=== PATIENT | female | born 1935 | race Caucasian/White ===

== ENCOUNTER 2020-08-15 06:16 | Day surgery (SDC) | payer OTHER ==
--- OUTSIDE RECORDS SUMMARY | 2020-08-15 06:24 | XMS REPORT | Continuity of Care Document ---
:1935 Author Organization [facility] t Address [address] [place] [address] Care Team Providers Name Role Phone Kolby Richardson MD Attending Clinician Problems This patient has no known problems. Allergies, Adverse Reactions, Alerts This patient has no known allergies or adverse reactions. Medications This patient has no known medications. Procedures This patient has no known procedures. Encounters Start End Encounter Admission Attending Care Care Encounter Source Date/Time Date/Time Type Type Clinicians Facility Department ID 2020-07-23 2020-07-23 Office TONY Richardson [id number] 15:35:12 16:15:28 Visit Rosendo Magallanes [id number] [place] [id number] [place]ela [id number] nal 092 Building Results This patient has no known results.
--- OUTSIDE RECORDS SUMMARY | 2020-08-15 06:25 | XMS REPORT | Summary of Care ---
:1935 Author Organization [facility] Address [address] [place], [place] [address] Care Team Providers Name Role Phone Brian Martin MD Primary Care Provider Reason for Referral (Routine) Status Reason Specialty Diagnoses / Referred By Referred To Procedures Contact Contact New Request Physical Therapy Diagnoses Neck pain, chronic Upper back pain, chronic Martin, Procedures CONSULT/REFERRAL PHYSICAL THERAPY Sanjana Torres MD [address] [place] [address] [address] Reason for Visit Reason Comments Follow-up Encounter Details Date Type Department Care Team Description 06/03/2020 Office Visit [facility] Pediatric Martin, Neck p ain, chronic (Primary Dx); and Adult Primary Howard Galindo Upper back pain, chronic; Care- [address] Nausea [address] [address] [address], [address] [place] [address] [place], [place] [phone] [address] [phone] Allergies Active Allergy Reactions Severity Noted Date Comments Amlodipine Other - See comments High 07/19/2017 Severe muscle pain Levofloxacin Nausea and/or High 08/05/2017 Vomiting Lisinopril Swelling 05/03/2017 Penicillins Other - See comments 10/08/2014 When re cieives IM Says feels like ic ewater in runni ng all over and fe els like passing ou t Does not recall getting any oth er way. Iqnpyyi-Smq-Gpz Unknown - See 03/03/2018 Muscle pain Reductase Inhibitors comments documented as of this encounter (statuses as of 06/04/2020) Medications Medication Sig Dispensed Refills Start Date End Date Status docusate 100 mg Take 100 mg 0 Ac tive capsule by mouth daily. MAGNESIUM CITRATE Take 1 0 Ac tive ORAL capsule by mouth 2 (two) times daily. aspirin 81 mg Take 1 tablet 30 tablet 5 12/08/2017 A ctive chewable tablet by mouth daily. D-MANNOSE ORAL 1000mg 0 02/22/2018 Acti ve w/cranberry 400mg COQ10, UBIQUINOL, 200 mg. 0 02/22/2018 A ctive ORAL clopidogreL 75 mg Take 1 tablet 90 tablet 3 01/09/2020 Active tabletIndications by mouth : History of daily. stroke Diclofenac Sodium APPLY TO 600 g 0 03/15/2020 A ctive 1 % AFFECTED gelIndications: AREA(S) EVERY Chronic neck 8 (EIGHT) pain, Chronic HOURS pain of both hips NEEDED FOR PAIN (SCALE 4-6). meloxicam 7.5 mg Take 1 tablet 60 tablet 3 06/03/2020 Active tabletIndications by mouth : Neck pain, daily. If not chronic, Upper helping may back pain, increase up chronic to 2 daily. ondansetron Take 1 tablet 270 tablet 3 09/26/2019 Di scontinued (ZOFRAN) 4 mg by mouth 0 (Thera py tabletIndications every 8 co mpleted) : Nausea (eight) hours as needed for Nausea and Vomiting (N/V). documented as of this encounter (statuses as of 06/04/2020) Active Problems Problem Noted Date Slurred speech 11/28/2017 Stroke 11/27/2017 Dizziness 10/07/2017 At risk for seizures 05/10/2017 IVH (intraventricular hemorrhage) 05/03/2017 Acquired obstructive hydrocephalus 05/03/2017 SAH (subarachnoid hemorrhage) 05/03/2017 Essential hypertension 05/03/2017 Vertebral artery dissection documented as of this encounter (statuses as of 06/04/2020) Resolved Problems Problem Noted Date Resolved Date Myocardial infarction type 2 08/12/2019 06/04/2020 Elevated troponin I level 08/11/2019 06/04/2020 UTI symptoms 06/29/2019 06/04/2020 Insect bite, initial encounter 06/20/2019 0 Hx: UTI (urinary tract infection) 06/20/20192019 Medicare annual wellness visit, subsequent 06/20/2019 06/04/2020 Unspecified severe protein-calorie malnutrition 01/31/2018 06/04/2020 Protein-calorie malnutrition, moderate 01/31/2018 0 06/04/2020 Disorientation 05/03/2017 08/15/2017 Nausea & vomiting 05/02/2017 06/04/2020 documented as of this encounter (statuses as of 06/04/2020) Social History Tobacco Use Types Packs/Day Years Used Date Never Smoker Smokeless Tobacco: Never Used Alcohol Use Drinks/Week oz/Week Comments No Sex Assigned at Date Recorded Not on file COVID-19 Exposure Response Date Recorded In the last month, have you been in contact with No / Unsure 06/03/2020 2:17 PM CDT someone who was confirmed or suspected to have Coronavirus / COVID-19? documented as of this encounter Last Filed Vital Signs Vital Sign Reading Time Taken Comments Blood Pressure 167/85 06/03/2020 3:33 PM CDT Pulse 83 06/03/2020 3:31 PM CDT Temperature 36.2 C (97.2 F) 06/03/2020 3:31 PM CDT Respiratory Rate 20 06/03/2020 3:31 PM CDT Oxygen Saturation 95% 06/03/2020 3:31 PM CDT Inhaled Oxygen Concentration - - Weight 61.5 kg (135 lb 8 oz) 06/03/2020 3:31 PM CDT Height 172.7 cm (5' 8") 06/03/2020 3:31 PM CDT Body Mass Index 20.6 06/03/2020 3:31 PM CDT documented in this encounter Patient Instructions Patient InstructionsAraseli Dorsey M - 06/03/2020 3:20 PM CDTYou can read "Plant Paradox" by Dr. Herring. He has a lot of good information on diet and talks aboutlectins. You can also go online to [email or web address] [email or web address] for more information and recipes. 5 drops each of copaiba, frankincense, and orange essential oils in 10ml roller bottle, then add Jojoba oil to fill the bottle. Can use up to every 4 hours on intact skin over the area of pain. documented in this encounter Progress Notes Sanjana Martin MD - 06/03/2020 3:20 PM CDT DOS: 06/03/2020 CC: Follow up of chronic conditions HPI: Renu Garcia is a 84 year old female with history including has a past medical history of Glaucoma, Hydrocephalus (05/2017), Hypertension, Migraines, Stroke, and Vertebral artery dissection. who is being seen today for follow up of chronic conditions. Patient reports nausea resolved with taking salt tablet. Daughter states when she took her off the salt tablet the nausea came back and she started having dizziness with standing, symptoms resolved when she restarted the salt tablet. Patient reports occasional pain down the left arm, pain is worse when she walks with her walker. On exam, she has tight muscles in her neck. She sits with her head leaning forward and reports pain whentrying to lift her head back. Daughter states she's unable to have massage therapy on her neck due to occlusion of vertebral artery, they were told to never allow massage in her neck as could break a clot free. Had significant pain when trying to get glaucoma test. She had to put her head back to put her chin on the machine but could not tolerate the pain. Daughter mentions after hip procedure she refused to work with PT due to pain. Health Maintenance Discuss at future visit. Medications reviewed in [facility], past medical history and social history and allergies reviewed. Review of Systems Gastrointestinal: Negative for nausea. Musculoskeletal: Positive for back pain (upper back ) and neck pain. Neurological: Negative for dizziness. PE: Blood pressure (!) 167/85, pulse 83, temperature 36.2 C (97.2 F), temperature source Temporal Artery, resp. rate 20, height 5' 8" (1.727 m), weight 135 lb 8 oz (61.5 kg), SpO2 95 %. Physical Exam Vitals signs reviewed. Constitutional: General: She is not in acute distress. Appearance: She is well-developed. She is not diaphoretic. HENT: Head: Normocephalic and atraumatic. Right Ear: External ear normal. Left Ear: External ear normal. Nose: Nose normal. Eyes: General: No scleral icterus. Right eye: No discharge. Left eye: No discharge. Comments: Left and right eyelids normal. Neck: Musculoskeletal: Decreased range of motion. Pain with movement present. Musculoskeletal: Comments: She has tight muscles in her neck. Skin: General: Skin is warm and dry. Neurological: Mental Status: She is alert and oriented to person, place, and time. Comments: No tremors. Normal gait. Psychiatric: Behavior: Behavior normal. Comments: Pleasant. Results: No new labs Education & Visit Time: this visit involved counseling and coordination of care that comprised more than 50% of the visit time. I spent at least 25 mintues total time with the patient. Of that time, at least 1 minute was spent on exam, and at least 24 minutes was spent obtaining history and counseling the patient regarding risks and benefits of treatment, treatment options and prevention. A/P: Renu Garcia is a 84 year old female with history including has a past medical history ofGlaucoma, Hydrocephalus (05/2017), Hypertension, Migraines, Stroke, and Vertebral artery dissection.who is being seen today for chronic medical conditions. Neck pain, chronic (primary encounter diagnosis) Upper back pain, chronic Comment: pain not controlled. Could be related to tight muscles and poor posture, will try PT. Will give meloxicam for now (no bleeding, currently taking ibuprofen twice a day) even though on plavix. If any bleeding daughter will stop. Will try to decrease pain so she can work with PT. Spent time discussing this. Plan: START meloxicam 7.5 mg tablet, CONSULT/REFERRAL PHYSICAL THERAPY. Discussed essential oils for pain, information provided on after visit summary. Nausea Comment: resolved with taking salt tablet. Plan: continue adding salt to diet. Return for 2-3 months for follow-up chronic conditions.. Plan of care, desired health behaviors, goals,& medication discussed with patient and educational resources and self management tools provided as appropriate. Patient/family/guardian voices understanding. Patient verbalized understanding & agrees to plan of care. Barriers to care: none Ability to manage care: good Scribe's Attestation Araseli Rodriguez , am scribing for, and in the presence of, Sanjana Martin MD who performed the services described here-in. Araseli Dorsey, June 03, 2020, 3:21 PM Physician's Attestation I, Sanjana Martin MD, personally performed the services described in this documentation , asscribed by, Araseli Dorsey in my presence and it is both accurate and complete. Sanjana Martin MD June 04, 2020, 10:32 AM documented in this encounter Plan of Treatment Date Type Specialty Care Team Description 08/12/2020 Office Visit Internal Medicine Patti Martin MD [address] [place] [address] 15 [phone] Health Maintenance Due Date Last Done Comments DTaP,Tdap,and Td Vaccines (1 1956 - Tdap) Medicare Wellness Visit 2002 Osteoporosis Screening 06/21/2020 Postponed from 2002 (Alternative Joseph delines) INFLUENZA VACCINE (#1) 2020 Depression Screening 11/21/2020 11/21/2019 Zoster Recombinant Vaccine 11/23/2020 Postp oned from 1987 (SHINGRIX) (1 of 2) (Insurance / Financial) PNEUMOCOCCAL VACCINES 65+ Addressed 08/05/2017 Overri dden with the (Declined) intention of not completing the t opic documented as of this encounter Implants Implanted Type Area Display Maker Device Shelf Model / Identifier Expiration Serial / Lot Date Bipolar Head, Hu Uhr Bipolar [id number] #Uh1-48-28 [Uh1-48-28] BIPOLAR Left: Hu 02/02/2022 [id number] / Implanted: Qty: 1 on 11/29/2017 by Reid Tim MD at [facility] head Hip 0 / [id number] Head, [place] V40 Cocr Lfit 28mm/0 #6260-9-128 Femoral Left: Hu 07/20/2022 6260-9-128 / Implanted: Qty: 1 on 11/29/2017 by Reid Tim MD at [facility] Head Hip 0 / [id number] Stem, [place] Size 7 Accolade Ii 127deg #[id number] Femoral Left: Hu 08/10/2022 [id number] / Implanted: Qty: 1 on 11/29/2017 by Reid Tim MD at [facility] Stem Hip 0 / [id number] documented as of this encounter Results Not on filedocumented in this encounter Visit Diagnoses Diagnosis Neck pain, chronic - Primary Cervicalgia Upper back pain, chronic Backache, unspecified Nausea Nausea alone documented in this encounter Insurance Payer Benefit Plan / Subscriber ID Effective Dates Phone Addre ss Type Group MEDICARE MEDICARE PART [id number] 2002-[place] [phone] Medicare A & B t 2 [id number] [place] [id number] [facility] MEDICAID OF [id number] 2012-Presen [phone] [address] Medicaid [place] t 0 [id number] [place] [address] documented as of this encounter Advance Directives Name Relationship Healthcare Agent Communication Relationship Zoya "Ailyn" Abran [facility] Health Care Agent [email or web address] MonkAt[facility] Health [facility] Agent (Mobile) [email or web address]
--- OUTSIDE RECORDS SUMMARY | 2020-08-15 06:25 | XMS REPORT | Summary of Care ---
:1935 Author Organization [facility] Address [address] [place], [place] [id number] Care Team Providers Name Role Phone Biran Martin MD Primary Care Provider Reason for Referral (Routine) Status Reason Specialty Diagnoses / Referred By Referred To Procedures Contact Contact New Request Physical Therapy Diagnoses Neck pain, chronic Upper back pain, chronic Martin, Procedures CONSULT/REFERRAL PHYSICAL THERAPY Sanjana Torres MD [address] [place] [address] [address] Reason for Visit Reason Comments Follow-up Encounter Details Date Type Department Care Team Description 06/03/2020 Office Visit [facility] Pediatric Martin, Neck p ain, chronic (Primary Dx); and Adult Primary Howard Galindo Upper back pain, chronic; Care- [address] Nausea [address] [address] [address], [address] [place] [address] [place] [phone] [address] [phone] Allergies Active Allergy Reactions Severity Noted Date Comments Amlodipine Other - See comments High 07/19/2017 Severe muscle pain Levofloxacin Nausea and/or High 08/05/2017 Vomiting Lisinopril Swelling 05/03/2017 Penicillins Other - See comments 10/08/2014 When re cieives IM Says feels like ic ewater in runni ng all over and fe els like passing ou t Does not recall getting any oth er way. Lzxngau-May-Mai Unknown - See 03/03/2018 Muscle pain Reductase [...] aboutlectins. You can also go online to [email or web address]/ for more information and recipes. 5 drops [...] Discuss at future visit. Medications reviewed in [facility], past medical history and social history and [...] Office Visit Internal Medicine Patti Martin MD [address] [place] [address] 15 [phone] Health Maintenance Due Date Last Done Comments [...] of this encounter Implants Implanted Type Area Third Hand Device Shelf Model / Identifier Expiration Serial / Lot Date Bipolar Head, Hu Uhr Bipolar [id number] #Uh1-48-28 [Uh1-48-28] BIPOLAR Left: Hu 02/02/2022 UH1-48-28 / Implanted: Qty: 1 on 11/29/2017 by Reid Tim MD at [facility] head Hip 0 / [id number] Head, [place] V40 Cocr Lfit 28mm/0 #6260-9-128 Femoral Left: Hu 07/20/2022 6260-9-128 / Implanted: Qty: 1 on 11/29/2017 by Reid Tim MD at [facility] Head Hip 0 / [id number] Stem, [place] Size 7 Accolade Ii 127deg #[id number] Femoral Left: Hu 08/10/2022 [id number] / Implanted: Qty: 1 on 11/29/2017 by Reid Tim MD at [facility] Stem Hip 0 / [id number] documented as of this encounter Results Not on filedocumented in this encounter Visit Diagnoses Diagnosis Neck pain, chronic - Primary Cervicalgia Upper back pain, chronic Backache, unspecified Nausea Nausea alone documented in this encounter Insurance Payer Benefit Plan / Subscriber ID Effective Dates Phone Addre ss Type Group MEDICARE MEDICARE PART [id number] 2002-[place] [phone] [address] Medicare A & B t 2 [id number] [place] [phone] [facility] MEDICAID OF [id number] 2012-Presen [phone] [address] Medicaid [place] t 0 [id number] [place] [address] documented as of this encounter Advance Directives Name Relationship Healthcare Agent Communication Relationship Zoya "Ailyn" Abran [facility] Health Care Agent [email or web address] MonkHugh [facility] Agent (Mobile) [email or web address]
--- OUTSIDE RECORDS SUMMARY | 2020-08-15 06:26 | XMS REPORT | Summary of Care ---
:1935 Author Organization [facility] Address [address] [place] [address] Care Team Providers Name Role Phone Brian Martin MD Primary Care Provider Reason for Visit Reason Comments Refill Request Encounter Details Date Type Department Care Team Description 06/10/2020 Refill [facility] Family Medicine Jabier Martin, Refill Request - Elpidio OROZCO [address] [place] [address] Dr [address] [place] [address] [place] [address] [facility] [address] [place] [address] Allergies Active Allergy Reactions Severity Noted Date Comments Amlodipine Other - See comments High 07/19/2017 Severe muscle pain Levofloxacin Nausea and/or High 08/05/2017 Vomiting Lisinopril Swelling 05/03/2017 Penicillins Other - See comments 10/08/2014 When re cieives IM Says feels like ic ewater in runni ng all over and fe els like passing ou t Does not recall getting any oth er way. Gacakfn-Hga-Ylg Unknown - See 03/03/2018 Muscle pain Reductase Inhibitors comments documented as of this encounter (statuses as of 06/12/2020) Medications Medication Sig Dispensed Refills Start Date End Date Status docusate 100 mg Take 100 mg by 0 Active capsule mouth daily. MAGNESIUM CITRATE Take 1 capsule 0 Active ORAL by mouth 2 (two) times daily. aspirin 81 mg Take 1 tablet 30 tablet 5 12/08/2017 A ctive chewable tablet by mouth daily. D-MANNOSE ORAL 1000mg 0 02/22/2018 Acti ve w/cranberry 400mg COQ10, UBIQUINOL, 200 mg. 0 02/22/2018 A ctive ORAL clopidogreL 75 mg Take 1 tablet 90 tablet 3 01/09/2020 Active tabletIndications by mouth : History of daily. stroke meloxicam 7.5 mg Take 1 tablet 60 tablet 3 06/03/2020 Active tabletIndications by mouth : Neck pain, daily. If not chronic, Upper helping may back pain, increase up to chronic 2 daily. Diclofenac Sodium APPLY TO 600 g 3 06/12/2020 A ctive 1 % AFFECTED gelIndications: AREA(S) EVERY Chronic neck 8 (EIGHT) pain, Chronic HOURS pain of both hips NEEDED FOR PAIN (SCALE 4-6). Diclofenac Sodium APPLY TO 600 g 0 03/15/2020 D iscontinued 1 % AFFECTED 0 (Reorder) gelIndications: AREA(S) EVERY Chronic neck 8 (EIGHT) pain, Chronic HOURS pain of both hips NEEDED FOR PAIN (SCALE 4-6). documented as of this encounter (statuses as of 06/12/2020) Active Problems Problem Noted Date Slurred speech 11/28/2017 Stroke 11/27/2017 Dizziness 10/07/2017 At risk for seizures 05/10/2017 IVH (intraventricular hemorrhage) 05/03/2017 Acquired obstructive hydrocephalus 05/03/2017 SAH (subarachnoid hemorrhage) 05/03/2017 Essential hypertension 05/03/2017 Vertebral artery dissection documented as of this encounter (statuses as of 06/12/2020) Resolved Problems Problem Noted Date Resolved Date [...] as of this encounter (statuses as of 06/12/2020) Social History Tobacco Use Types Packs/Day Years [...] of this encounter Last Filed Vital Signs Not on filedocumented in this encounter Plan of Treatment Date Type Specialty Care Team Description 06/17/2020 Ancillary Visit Physical Therapy Vanesa Miller , PT [address] [place] [address] 08/12/2020 Office Visit Internal Medicine Patti Martin MD [address] [place] [address] Health Maintenance Due Date Last Done Comments [...] of this encounter Implants Implanted Type Area Water Plant Pump Operator Supervisor Device Shelf Model / Identifier Expiration Serial / Lot Date Bipolar Head, Anita Uhr Bipolar [id number] #Uh1-48-28 [Uh1-48-28] BIPOLAR Left: Hu 02/02/2022 UH1-48-28 / Implanted: Qty: 1 on 11/29/2017 by Reid Tim MD at [facility] head Hip 0 / [id number] Head, [place] V40 Cocr Lfit 28mm/0 #[id number] Femoral Left: Hu 07/20/2022 6260-9-128 / Implanted: Qty: 1 on 11/29/2017 by Reid Tim MD at [facility] Head Hip 0 / [id number] Stem, Hu Size 7 Accolade Ii 127deg #[id number] Femoral Left: Anita 08/10/2022 [id number] / Implanted: Qty: 1 on 11/29/2017 by Reid Tim MD at [facility] Stem Hip 0 / [id number] documented as of this encounter Results Not on filedocumented in this encounter Visit Diagnoses Diagnosis Chronic neck pain Cervicalgia Chronic pain of both hips documented in this encounter Insurance Payer Benefit Plan / Subscriber ID Effective Dates Phone Addre ss Type Group MEDICARE MEDICARE PART [id number] 2002-[place] [phone] [address] Medicare A & B t 2 [id number] [place] [id number] [facility] MEDICAID OF [id number] 2012-[place] [phone] [address] Medicaid [place] t 0 [id number] [place] [address] documented as of this encounter Advance Directives Name Relationship Healthcare Agent Communication Relationship Zoya "Lois Osullivan [facility] Health Care Agent [email or web address] [email or web address] Garcia [facility] Agent (Mobile) [email or web address]
--- OUTSIDE RECORDS SUMMARY | 2020-08-15 06:26 | XMS REPORT | Summary of Care ---
:1935 Author Organization [facility] Address [address] [id number] Care Team Providers Name Role Phone Brian Martin MD Primary Care Provider Reason for Visit Reason Comments New Evaluation (Routine) Status Reason Specialty Diagnoses / Referred By Referred To Procedures Contact Contact Authorized Physical Therapy Diagnoses Neck pain, chronic Upper back pain, chronic Martin, Procedures CONSULT/REFERRAL PHYSICAL THERAPY TX PHYSICAL THERAPY EVALUATION LOW COMPLEX 20 MINS TX PHYSICAL THERAPY EVALUATION MOD COMPLEX 30 MINS TX PHYSICAL THERAPY EVALUATION HIGH COMPLEX 45 MINS TX THERAPEUTIC EXERCISES Sanjana Torres MD [place] NEUROMUSC REE DUCAT,1+ AREAS, EA 15 MIN TX MANUAL THER TECH,1+REGIONS,EA 15 MIN TX THERAPEUT ACTVITY DIRECT PT CONTACT EACH 15 MIN TX SELF-CARE/HOME MGMT TRAINING EACH 15 MINUTES [address] [place] [address] Encounter Details Date Type Department Care Team Description 06/17/2020 Ancillary Visit [facility] Ryley Salinas MD [address] [facility] [place] [address] Chronic neck pain (Primary Dx); Physical Therapy- Vanesa Miller, PT [address] [place] [address] Chronic upper back pain; Hagerman Limited joint range of motio n; Professional Office Muscle w eakness (generalized); Building Impaired functional mobility and activity tolerance [address] [place] [phone] Allergies Active Allergy Reactions Severity Noted Date Comments Amlodipine Other - See comments High 07/19/2017 Severe muscle pain Levofloxacin Nausea and/or High 08/05/2017 Vomiting Lisinopril Swelling 05/03/2017 Penicillins Other - See comments 10/08/2014 When re cirao IM Says feels like ic ewater in runni ng all over and fe els like passing ou t Does not recall getting any oth er way. [id number] Unknown - See 03/03/2018 Muscle pain Reductase Inhibitors comments documented as of this encounter (statuses as of 06/18/2020) Medications Medication Sig Dispensed Refills Start Date End Date Status docusate 100 mg Take 100 mg by 0 Active capsule mouth daily. MAGNESIUM CITRATE ORAL Take 1 capsule by 0 Active mouth 2 (two) times daily. aspirin 81 mg chewable Take 1 tablet by 30 tablet 5 12/08/2017 Active tablet mouth daily. D-MANNOSE ORAL 1000mg w/cranberry 0 02/22/2018 Active 400mg COQ10, UBIQUINOL, ORAL 200 mg. 0 02/22/2018 Active clopidogreL 75 mg Take 1 tablet by 90 tablet 3 01/09/2020 Active tabletIndications: mouth daily. History of stroke meloxicam 7.5 mg Take 1 tablet by 60 tablet 3 06/03/2020 Active tabletIndications: mouth daily. If Neck pain, chronic, not helping may Upper back pain, increase up to 2 chronic daily. Diclofenac Sodium 1 % APPLY TO AFFECTED 600 g 3 06/12/2020 Active gelIndications: AREA(S) EVERY 8 Chronic neck pain, (EIGHT) HOURS Chronic pain of both NEEDED FOR PAIN hips (SCALE 4-6). documented as of this encounter (statuses as of 06/18/2020) Active Problems Problem Noted Date Slurred speech 11/28/2017 Stroke 11/27/2017 Dizziness 10/07/2017 At risk for seizures 05/10/2017 IVH (intraventricular hemorrhage) 05/03/2017 Acquired obstructive hydrocephalus 05/03/2017 SAH (subarachnoid hemorrhage) 05/03/2017 Essential hypertension 05/03/2017 Vertebral artery dissection documented as of this encounter (statuses as of 06/18/2020) Resolved Problems Problem Noted Date Resolved Date [...] as of this encounter (statuses as of 06/18/2020) Social History Tobacco Use Types Packs/Day Years Used Date Never Smoker Smokeless Tobacco: Never Used Alcohol Use Drinks/Week oz/Week Comments No Sex Assigned at Date Recorded Not on file COVID-19 Exposure Response Date Recorded In the last month, have you been in contact with No / Unsure 06/17/2020 12:18 PM CDT someone who was confirmed or suspected to have Coronavirus / COVID-19? documented as of this encounter Last Filed Vital Signs Not on filedocumented in this encounter Progress Notes Vanesa Miller, PT - 06/17/2020 2:00 PM CDT Initial Evaluation Date: June 17, 2020 Visit Number: Visit count could not be calculated. Make sure you are using a visit which is associated with an episode. Diagnosis: 1. Chronic neck pain 2. Chronic upper back pain 3. Limited joint range of motion 4. Muscle weakness (generalized) 5. Impaired functional mobility and activity tolerance History of Condition: Patient agreed for her daughter to be present during PT evaluation. Per patient daughter patient woke up with neck pain and upper back pain last April 2020. Patient complaint of not able to move neck to all direction due to pain and occasionally she have some tingling/numbness sensation on both hands in certain position.Patient daughter also stated that she was not able to have eye exam due to increase pain when bending backward. PRECAUTION: Copied from doctor's order comment:neck pain and upper back pain. NO massage in her neckdue to occlusion, but can do excercises for the neck. ok for massage therapy below the neck. please do exercises for upper back and neck. Knowledge of condition: Fair Quality of life: Good Prior physical therapy: No Patient Goals: Goals Patient wants to be able to get her head up to be able to get her eyes check. (pt-stated) Past Medical History: Diagnosis Date Glaucoma Hydrocephalus 05/2017 Hypertension Migraines since 16 years old. Stroke Vertebral artery dissection Past Surgical History: Procedure Laterality Date BREAST LUMPECTOMY was benign cyst EXTRACAPSULAR CATARACT EXTRACTION WITH INTRAOCULAR LENS IMPLANT HIP HEMIARTHROPLASTY Left 11/29/2017 Surgeon: Reid Tim MD; Location: [facility] OR Location VAGINAL RECONSTRUCTION Objective: Outpatient PT Evaluation Row Name 06/17/20 1400 Precautions Precautions 1: General Assessments: Cervical Spine Assessments C-Spine Assessments: Observations;Range of motion;L scapula strength;R scapula strength Cervical Spine Observations Posture: Forward head;Rounded shoulders Cervical Spine Tenderness: Right;Left Cervical Spine Range of Motion Cervical Spine Flexion: (22) Cervical Spine Extension: (8) Cervical Spine Sidebend Right: 36 Cervical Spine Sidebend Left: 22 Cervical Spine Rotation Right: (10) Cervical Spine Rotation Left: (13) Right Shoulder Scapula Strength R Retraction/Lower Trapezius: 3+/5 R Protraction/Middle Trapezius: 3+/5 R Elevation/Rhomboids: 3+/5 R Depression/Serratus Anterior: 3+/5 Left Shoulder Scapula Strength L Retraction/Lower Trapezius: 3+/5 L Protraction/Middle Trapezius: 3+/5 L Elevation/Rhomboids: 3+/5 L Depression/Serratus Anterior: 3+/5 Outcome Tools: Neck and Pain Disability Scores: Total Percentage: 60 % Total Manual Score: (not recorded) Treatment: See Outpatient PT Treatment Flowsheet Assessment: Patient will benefit from skilled PT services to decrease pain, increase range of motion, strength, and improve functional mobility. Rehab potential: guarded Facilitators to goal achievement: Good family support Barriers to goal achievement: Medical complexity Short Term Goals: To be met in 4 visits: 1. Decrease pain to at least neck and upper back to 3/10. 2. Increase neck ROM to 50% 3. Educate Pt. on a HEP (Home Exercise Program), and proper posture/body mechanics. Chcf Goals: To be met in 8 visits: 1. Patient will be able to turn head and upper back to safely without pain 2. Patient will demonstrate increased cervical range of motion by 90% or better to be able to reach maximum functional mobility 3. Patient will report decreased pain to 1/10 or better 4. Patient will be independent with home exercise program. 5. Patient able to understand and demonstrate safety and precaution independently in activities of daily living, gait and functional mobility Plan of Care 1. Modalities as needed to control pain 2. Therapeutic Exercises & Activities to increase cervical ROM, strength, flexibility, and improve functional performance. 3. Manual Therapy to upper back only 4. Safety and Precaution Education Frequency: 2x/week Duration: 8 visits I have discussed the risks and benefits of the above plan with Renu Garcia. She is aware of the diagnosis and potential to improve. She participated in the setting of the goals and understands the importance of complying with the treatment plan, including home instruction. She agreed to th e above frequency and duration of rehab services. Patient- Family Teaching: Patient provided with preferred teaching of verbal information on POC. Shows readiness to learn. Verbal instruction teaching provided. Individual is able to read and verbalizes understanding of teaching provided. Vanesa Miller,PT [place] License: [id number] Required Components in Determining Evaluation Level History: No personal factors or comorbidities: No (60220) 1-2 personal factors and/or comorbidities: Yes (10790) 3 or more personal factors and/ or comorbidities: No (66509) Examination of Body System(s) Addressing 1-2 elements: Yes (49974) Addressing a total of 3 or more elements: No (09967) Addressing a total of 4 or more elements: No (58893) Clinical Presentation Stable: Yes (69974) Evolving: No (35293) Unstable: No (18702) Clinical Decision Making (Complexity) Low: Yes (05347) Moderate: No (94743) High: No (39637) documented in this encounter Plan of Treatment Date Type Specialty Care Team Description 06/24/2020 Ancillary Visit Physical Therapy Vanesa Miller , PT [address] [place] [address] 06/26/2020 Ancillary Visit Physical Therapy Katherine Dodd, WOOL SHEARING SUPERVISOR [address] [place] [address] 07/03/2020 Ancillary Visit Physical Therapy Katherine Dodd, WOOL SHEARING SUPERVISOR [address] [place] [address] 07/05/2020 Ancillary Visit Physical Therapy Katherine Dodd, WOOL SHEARING SUPERVISOR [address] [place] [address] 08/12/2020 Office Visit Internal Medicine Patti Martin MD [address] [place] [address] [phone] Health Maintenance Due Date Last Done Comments [...] t opic documented as of this encounter Goals Goal Patient Goal Associated Recent Patient-Stated? Author Type Problems Progress Patient wants General Yes Miller, to be able to Vanesa Lopez PT get her head up to be able to get her eyes check. documented as of this encounter Implants Implanted Type Area Audit Mgr Device Shelf Model / Identifier Expiration Serial / Lot Date Bipolar Head, [place] Uhr Bipolar [id number] [[id number]] BIPOLAR Left: [place] 02/02/2022 [id number] / Implanted: Qty: 1 on 11/29/2017 by Reid Tim MD at [facility] head Hip 0 / [id number] Head, [place] V40 Cocr Lfit 28mm/0 #[id number] Femoral Left: Hu 07/20/2022 6260-9-128 / Implanted: Qty: 1 on 11/29/2017 by Reid Tim MD at [facility] Head Hip 0 / [id number] Stem, [place] Size 7 Accolade Ii 127deg #[id number] Femoral Left: Hu 08/10/2022 [id number] / Implanted: Qty: 1 on 11/29/2017 by Reid Tim MD at [facility] Stem Hip 0 / [id number] documented as of this encounter Results Not on filedocumented in this encounter Visit Diagnoses Diagnosis Chronic neck pain - Primary Cervicalgia Chronic upper back pain Backache, unspecified Limited joint range of motion Stiffness of joint, not elsewhere classi fied, unspecified site Muscle weakness (generalized) Impaired functional mobility and activit y tolerance documented in this encounter Insurance Payer Benefit Plan / Subscriber ID Effective Dates Phone Addre ss Type Group MEDICARE MEDICARE PART [id number] 2002-[place] [phone] [address] Medicare A & B t 2 [id number] [place] [id number] [facility] MEDICAID OF [id number] 2012-[place] [phone] [address] Medicaid [place] t 0 [id number] [place] [address] documented as of this encounter Advance Directives Name Relationship Healthcare Agent Communication Relationship Zoya "Lois Osullivan [facility] Health Care Agent [email or web address] [email or web address] Haines [address] [place] [address] [phone] Agent (Mobile) [email or web address]
--- OUTSIDE RECORDS SUMMARY | 2020-08-15 06:27 | XMS REPORT | Summary of Care ---
:1935 Author Organization [facility] Address [address] [place] [address] Care Team Providers Name Role Phone Brian Martin MD Primary Care Provider Reason for Visit Reason Comments Follow-up (Routine) Status Reason Specialty Diagnoses / Referred By Referred To Procedures Contact Contact Authorized Physical Therapy Diagnoses Neck pain, chronic Upper back pain, chronic Matrin, Procedures CONSULT/REFERRAL PHYSICAL THERAPY GA PHYSICAL THERAPY EVALUATION LOW COMPLEX 20 MINS GA PHYSICAL THERAPY EVALUATION MOD COMPLEX 30 MINS GA PHYSICAL THERAPY EVALUATION HIGH COMPLEX 45 MINS GA THERAPEUTIC EXERCISES Sanjana Torres MD [place] NEUROMUSC REE DUCAT,1+ AREAS, EA 15 MIN GA MANUAL THER TECH,1+REGIONS,EA 15 MIN GA THERAPEUT ACTVITY DIRECT PT CONTACT EACH 15 MIN GA SELF-CARE/HOME MGMT TRAINING EACH 15 MINUTES [address] [place] [address] Encounter Details Date Type Department Care Team Description 06/26/2020 Ancillary Visit [facility] Ryley Salinas MD [address] [place] [address] Chronic neck pain (Primary Dx); Physical Therapy- Katherine Dodd, RIG OPERATOR [address] [place] [address] Chronic upper back pain; Arthur Limited joint range of motio n; Professional Office Muscle w eakness (generalized); Building Impaired functional mobility and activity tolerance [address] [place] [phone] Allergies Active Allergy Reactions Severity Noted Date Comments Amlodipine Other - See comments High 07/19/2017 Severe muscle pain Levofloxacin Nausea and/or High 08/05/2017 Vomiting Lisinopril Swelling 05/03/2017 Penicillins Other - See comments 10/08/2014 When re cirao IM Says feels like ic ewater in runni ng all over and fe els like passing ou t Does not recall getting any oth er way. [id number] Unknown - See 03/03/2018 Muscle pain Reductase Inhibitors comments documented as of this encounter (statuses as of 06/26/2020) Medications Medication Sig Dispensed Refills Start Date [...] as of this encounter (statuses as of 06/26/2020) Active Problems Problem Noted Date Slurred speech 11/28/2017 Stroke 11/27/2017 Dizziness 10/07/2017 At risk for seizures 05/10/2017 IVH (intraventricular hemorrhage) 05/03/2017 Acquired obstructive hydrocephalus 05/03/2017 SAH (subarachnoid hemorrhage) 05/03/2017 Essential hypertension 05/03/2017 Vertebral artery dissection documented as of this encounter (statuses as of 06/26/2020) Resolved Problems Problem Noted Date Resolved Date [...] as of this encounter (statuses as of 06/26/2020) Social History Tobacco Use Types Packs/Day Years [...] on filedocumented in this encounter Progress Notes Katherine Dodd, RIG OPERATOR - 06/26/2020 2:20 PM CDT Physical Therapy Treatment Date: June 26, 2020 Subjective: Pt has no current c/o neck pain. She states it is sore and she thinks it started hurtingafter she got a new pillow that is very thick and she was used to sleeping with a thin one. Pt reports that she fell yesterday and now her lower rib on left side hurts some. She did not quantify pain. 1. Chronic neck pain 2. Chronic upper back pain 3. Limited joint range of motion 4. Muscle weakness (generalized) 5. Impaired functional mobility and activity tolerance Objective: Outpatient PT Treatment Row Name 06/26/20 1400 General Visit Number 3 Chart Reviewed Yes Family/Caregiver Present No General Comments 3 of 8 visits Precautions Precautions 1: SEE EVAL: No massage on neck Pain Assessment Pain Score 0 - No pain Pain Location Neck upperback Pain Descriptors Sore Therapeutic Exercise Therapeutic Exercise Activity 1 Upper trapz, SCM, Levator scapulae stretch: 2 X 30"ea Therapeutic Exercise Activity 2 Shoulder shrug, sh bkwd rotation, sh horizontal abduction,Sh blades protraction/retraction, trunk rotation x 10 ea Therapeutic Exercise Acitivity 3 Sitting in W/C: Thoracic extension with ball, trunk forward bend x 10ea Therapeutic Exercise Activity 4 Sitting in WC: Iglesia: flexion and abduction 1'ea HEP: Continue HEP as instructed. Pt reports compliance. Assessment: Pt exhibits weak core with independent sitting on zoie. She required verbal, visual and tactile cues for stretches and exercises. Pt tolerated treatment fair. Plan: Continue with POC 2 x 8 to decrease pain, increase cervical ROM and improve functional mobility. Will add/advance exercises as able. Katherine Dodd PTA [place] Lic#[id number] Supervised by: Lidya Pickard PT [facility] [phone] (phone) documented in this encounter Plan of Treatment Date Type Specialty Care Team Description 07/03/2020 Ancillary Visit Physical Therapy Ryley Salinas MD [address] [place] [address] Katherine Dodd [address] [address] 07/05/2020 Ancillary Visit Physical Therapy Ryley Salinas MD [address] [place] [address] Katherine Dodd [address] [address] 08/12/2020 Office Visit Internal Medicine Patti Martin MD [address] [facility] [address] [place], [place] [address] [phone] Health Maintenance Due Date Last Done Comments DTaP,Tdap,and Td Vaccines (1 1956 - Tdap) Medicare Wellness Visit 2002 Osteoporosis Screening 2002 INFLUENZA VACCINE (#1) 2020 Depression Screening 11/21/2020 [...] General Yes Miller, to be able to [facility], PT get her head up to be able to get her eyes check. documented as of this encounter Implants Implanted Type Area Audit Control Clerk Device Shelf Model / Identifier Expiration Serial / Lot Date Bipolar Head, [place] Uhr Bipolar [id number] #[id number] [[id number]] BIPOLAR Left: [place] 02/02/2022 [id number] / Implanted: Qty: 1 on 11/29/2017 by Reid Tim MD at [facility] head Hip 0 / [id number] Head, [place] V40 Cocr Lfit 28mm/0 #[id number] Femoral Left: Hu 07/20/2022 6260-9-128 / Implanted: Qty: 1 on 11/29/2017 by Reid Tim MD at [facility] Head Hip 0 / [id number] Stem, [place] Size 7 Accolade Ii 127deg #[id number] Femoral Left: [place] 08/10/2022 [id number] / Implanted: Qty: 1 on 11/29/2017 by Reid Tim MD at [facility] Stem Hip 0 / [id number] documented as of this encounter Results Not [...] Addre ss Type Group MEDICARE MEDICARE PART [id number] 2002-[place] [phone] [address] Medicare A & B t 2 [id number] [place] [address] [facility] MEDICAID OF [id number] 2012-[place] [phone] [address] Medicaid [place] t 0 [id number] [place] [address] documented as of this encounter Advance Directives Name Relationship Healthcare Agent Communication Relationship Zoya "Lois Osullivan [facility] Care Agent [email or web address] [email or web address] Haines [facility] 97 [phone] Agent (Mobile) [email or web address]
--- OUTSIDE RECORDS SUMMARY | 2020-08-15 06:27 | XMS REPORT | Summary of Care ---
:1935 Author Organization [facility] Address [address] [place] [address] Care Team Providers Name Role Phone Brian Martin MD Primary Care Provider Reason for Visit Reason Comments Follow-up (Routine) Status Reason Specialty Diagnoses / Referred By Referred To Procedures Contact Contact Authorized Physical Therapy Diagnoses Neck pain, chronic Upper back pain, chronic Martin, Procedures CONSULT/REFERRAL PHYSICAL THERAPY DC PHYSICAL THERAPY EVALUATION LOW COMPLEX 20 MINS DC PHYSICAL THERAPY EVALUATION MOD COMPLEX 30 MINS DC PHYSICAL THERAPY EVALUATION HIGH COMPLEX 45 MINS DC THERAPEUTIC EXERCISES Sanjana Torres MD DC NEUROMUSC REE DUCAT,1+ AREAS, EA 15 MIN DC MANUAL THER TECH,1+REGIONS,EA 15 MIN DC THERAPEUT ACTVITY DIRECT PT CONTACT EACH 15 MIN DC SELF-CARE/HOME MGMT TRAINING EACH 15 MINUTES [address] [place] [address] Encounter Details Date Type Department Care Team Description 07/03/2020 Ancillary Visit [facility] Ryley Salinas MD [address] [place] [facility] [place] [address] Chronic neck pain (Primary Dx); Physical Therapy- Katherine Dodd, BOOK STORE ASSOCIATE [address] [place] [address] Chronic upper back pain; [place] Limited joint range of motio n; Professional Office Muscle w eakness (generalized); Building Impaired functional mobility and activity tolerance [address] [place] [phone] Allergies Active Allergy Reactions Severity Noted Date Comments Amlodipine Other - See comments High 07/19/2017 Severe muscle pain Levofloxacin Nausea and/or High 08/05/2017 Vomiting Lisinopril Swelling 05/03/2017 Penicillins Other - See comments 10/08/2014 When re cirao IM Says feels like ic ewater in runni ng all over and fe els like passing ou t Does not recall getting any oth er way. [id number] Unknown - See 03/03/2018 Muscle pain Reductase Inhibitors comments documented as of this encounter (statuses as of 07/03/2020) Medications Medication Sig Dispensed Refills Start Date [...] as of this encounter (statuses as of 07/03/2020) Active Problems Problem Noted Date Slurred speech 11/28/2017 Stroke 11/27/2017 Dizziness 10/07/2017 At risk for seizures 05/10/2017 IVH (intraventricular hemorrhage) 05/03/2017 Acquired obstructive hydrocephalus 05/03/2017 SAH (subarachnoid hemorrhage) 05/03/2017 Essential hypertension 05/03/2017 Vertebral artery dissection documented as of this encounter (statuses as of 07/03/2020) Resolved Problems Problem Noted Date Resolved Date [...] as of this encounter (statuses as of 07/03/2020) Social History Tobacco Use Types Packs/Day Years [...] in this encounter Progress Notes Katherine Dodd, BOOK STORE ASSOCIATE - 07/03/2020 2:20 PM CDT Physical Therapy Treatment Date: July 03, 2020 Subjective: Pt has no current c/o pain. She sates she stopped sleeping with a pillow because she thinks that is what made her neck hurt. 1. Chronic neck pain 2. Chronic upper back pain 3. Limited joint range of motion 4. Muscle weakness (generalized) 5. Impaired functional mobility and activity tolerance Objective: Outpatient PT Treatment Row Name 07/03/20 1400 General Visit Number 4 Chart Reviewed Yes Family/Caregiver Present No General Comments 4 of 8 visits Precautions Precautions 1: SEE EVAL: No massage on neck Pain Assessment Pain Score 0 - No pain Pain Location Neck upperback Therapeutic Exercise Enter Number of Therapeutic Exercise Activities: 5 Therapeutic Exercise Activity 1 Upper trapz, SCM, Levator scapulae stretch: 2 X 30"ea Therapeutic Exercise Activity 2 Shoulder shrug, sh bkwd rotation, sh horizontal abduction,Sh blades protraction/retraction, trunk rotation x 10 ea Therapeutic Exercise Acitivity 3 Sitting in W/C: Thoracic extension with ball, trunk forward bend x 10ea Therapeutic Exercise Activity 4 Sitting in WC: Iglesia: flexion and abduction 1'ea Therapeutic Exercise Activity 5 Sitting in WC: L2 TB 6 and 12 oclock x10ea, rows x10 HEP: Continue HEP as instructed. Pt reports compliance. Assessment: Pt was able to sit on ozie for a longer period of time today. She continues to require verbal, visual and tactile cues for stretches and exercises. Pt tolerated treatment fair. Plan: Continue with POC 2 x 8 to decrease pain, increase cervical ROM and improve functional mobility. Will add/advance exercises as able. Katherine Dodd PTA [place] Lic#[id number] Supervised by: Lidya Pickard PT [facility] Services Dept. [phone] (phone) documented in this encounter Plan of Treatment Date Type Specialty Care Team Description 07/05/2020 Ancillary Visit Physical Therapy Ryley Salinas MD [address] [place] [phone] Katherine Dodd BOOK STORE ASSOCIATE [address] [place] [address] 08/12/2020 Office Visit Internal Medicine Patti Martin MD [address] [facility] [address] [place], [place] [address] [phone] Health Maintenance Due Date Last Done Comments [...] Type Problems Progress Patient wants General Yes Paul, to be able to [facility], PT get her head up to be able to get her eyes check. documented as of this encounter Implants Implanted Type Area Elastic Attacher Overlock Device Shelf Model / Identifier Expiration Serial / Lot Date Bipolar Head, Hu Uhr Bipolar [id number] #Uh1-48-28 [Uh1-48-28] BIPOLAR Left: Graham 02/02/2022 [id number] / Implanted: Qty: 1 on 11/29/2017 by Reid Tim MD at [facility] head Hip 0 / [id number] Head, Graham V40 Cocr Lfit 28mm/0 #[id number] Femoral Left: Hu 07/20/2022 [id number] / Implanted: Qty: 1 on 11/29/2017 by Reid Tim MD at [facility] Head Hip 0 / [id number] Stem, Hu Size 7 Accolade Ii 127deg #[id number] Femoral Left: Graham 08/10/2022 [id number] / Implanted: Qty: 1 on 11/29/2017 by Reid Tim MD at [facility] Stem Hip 0 / [id number] documented as of this encounter Results Not [...] Addre ss Type Group MEDICARE MEDICARE PART [id number] 2002-[place] [phone] [address] Medicare A & B t 2 [id number] [place] [address] [facility] MEDICAID OF [id number] 2012-[place] [phone] [address] Medicaid [place] t 0 [id number] [place] [address] documented as of this encounter Advance Directives Name Relationship Healthcare Agent Communication Relationship Zoya Osullivan (Susie) [facility] Care Agent [email or web address] Grzegorz Haines [place] [address] [phone] Agent (Mobile) [email or web address]
--- OUTSIDE RECORDS SUMMARY | 2020-08-15 06:27 | XMS REPORT | Summary of Care ---
:1935 Author Organization [facility] Address [address] [place] [address] Care Team Providers Name Role Phone Brian Martin MD Primary Care Provider Reason for Visit Reason Comments Follow-up (Routine) Status Reason Specialty Diagnoses / Referred By Referred To Procedures Contact Contact Authorized Physical Therapy Diagnoses Neck pain, chronic Upper back pain, chronic Martin, Procedures CONSULT/REFERRAL PHYSICAL THERAPY PA PHYSICAL THERAPY EVALUATION LOW COMPLEX 20 MINS PA PHYSICAL THERAPY EVALUATION MOD COMPLEX 30 MINS PA PHYSICAL THERAPY EVALUATION HIGH COMPLEX 45 MINS PA THERAPEUTIC EXERCISES Sanjana Torres MD PA NEUROMUSC REE DUCAT,1+ AREAS, EA 15 MIN PA MANUAL THER TECH,1+REGIONS,EA 15 MIN PA THERAPEUT ACTVITY DIRECT PT CONTACT EACH 15 MIN PA SELF-CARE/HOME MGMT TRAINING EACH 15 MINUTES [address] [facility] [address] [place] [address] Encounter Details Date Type Department Care Team Description 07/05/2020 Ancillary Visit [facility] Ryley Salinas MD [address] [facility] [place] [address] Chronic neck pain (Primary Dx); Physical Therapy- Katherine Dodd, KRAFT MILL OPERATOR [address] [place] [address] Chronic upper back pain; [place] Limited joint range of motio n; Professional Office Muscle w eakness (generalized); Building Impaired functional mobility and activity tolerance [address] [place] [phone] Allergies Active Allergy Reactions Severity Noted Date Comments Amlodipine Other - See comments High 07/19/2017 Severe muscle pain Levofloxacin Nausea and/or High 08/05/2017 Vomiting Lisinopril Swelling 05/03/2017 Penicillins Other - See comments 10/08/2014 When re cirao IM Says feels like ic ewater in runni ng all over and fe els like passing ou t Does not recall getting any oth er way. [id number] Unknown - See 03/03/2018 Muscle pain Reductase Inhibitors comments documented as of this encounter (statuses as of 07/05/2020) Medications Medication Sig Dispensed Refills Start Date [...] as of this encounter (statuses as of 07/05/2020) Active Problems Problem Noted Date Slurred speech 11/28/2017 Stroke 11/27/2017 Dizziness 10/07/2017 At risk for seizures 05/10/2017 IVH (intraventricular hemorrhage) 05/03/2017 Acquired obstructive hydrocephalus 05/03/2017 SAH (subarachnoid hemorrhage) 05/03/2017 Essential hypertension 05/03/2017 Vertebral artery dissection documented as of this encounter (statuses as of 07/05/2020) Resolved Problems Problem Noted Date Resolved Date [...] as of this encounter (statuses as of 07/05/2020) Social History Tobacco Use Types Packs/Day Years [...] in this encounter Progress Notes Katherine Dodd, KRAFT MILL OPERATOR - 07/05/2020 2:20 PM CDT Physical Therapy Treatment Date: July 05, 2020 Subjective: Pt has no current c/o pain. She states she has occasional tingling down left arm. 1. Chronic neck pain 2. Chronic upper back pain 3. Limited joint range of motion 4. Muscle weakness (generalized) 5. Impaired functional mobility and activity tolerance Objective: Outpatient PT Treatment Row Name 07/05/20 1400 General Visit Number 5 Chart Reviewed Yes Family/Caregiver Present No General Comments 5 of 8 visits Precautions Precautions 1: SEE EVAL: No massage on neck Pain Assessment Pain Score 0 - No pain Pain Location Neck upperback Therapeutic Exercise Therapeutic Exercise Activity 1 Upper trapz, SCM, Levator scapulae stretch: 2 X 30"ea Therapeutic Exercise Activity 2 Shoulder shrug, sh bkwd rotation, sh horizontal abduction,Sh blades protraction/retraction, trunk rotation x 12 ea Therapeutic Exercise Acitivity 3 Sitting in W/C: Thoracic extension with ball 1', trunk forward bend x 10 Therapeutic Exercise Activity 4 Sitting in WC: Iglesia: flexion and abduction 1'ea Therapeutic Exercise Activity 5 Sitting: L2 TB 6 and 12 oclock x10ea, rows x10 Therapeutic Activity Enter Number of Therapeutic Activities: 2 Therapeutic Activity 1 Bracial nerve glides x5 Therapeutic Activity 2 Restorator for UE 1' fwd/ 1' bkwd HEP: Continue HEP as instructed. Pt reports compliance. Assessment: Pt exhibits slightly improved core strength with sitting EOB. She continues to require verbal, visual and tactile cues for stretches and exercises. Pt tolerated treatment fair. Plan: Continue with POC 2 x 8 to decrease pain, increase cervical ROM and improve functional mobility. Will add/advance exercises as able. Katherine Dodd PTA [place] Lic#[id number] Supervised by: Lidya Pickard PT [facility] Rehabilitation Services Dept. [phone] (phone) documented in this encounter Plan of Treatment Date Type Specialty Care Team Description 07/09/2020 Ancillary Visit Physical Therapy Lidya Anguiano, PT [address] [place] [address] 08/12/2020 Office Visit Internal Medicine Patti Martin MD [address] [place] [address] [phone] Health Maintenance Due Date Last Done Comments [...] General Yes Paul, to be able to Vanesa Lopez PT get her head up to be able to get her eyes check. documented as of this encounter Implants Implanted Type Area Community Leader Device Shelf Model / Identifier Expiration Serial / Lot Date Bipolar Head, [place] Uhr Bipolar [id number] #Uh1-48-28 [Uh1-48-28] BIPOLAR Left: [place] 02/02/2022 UH1-48-28 / Implanted: Qty: 1 on 11/29/2017 by Reid Tim MD at [facility] head Hip 0 / [id number] Head, Hu V40 Cocr Lfit 28mm/0 #[id number] Femoral Left: Hu 07/20/2022 [id number] / Implanted: Qty: 1 on 11/29/2017 by Reid Tim MD at [facility] Head Hip 0 / [id number] Stem, Hu Size 7 Accolade Ii 127deg #[id number] Femoral Left: [place] 08/10/2022 [id number] / Implanted: Qty: 1 on 11/29/2017 by Reid Tim MD at [facility] Stem Hip 0 / [id number] documented as of this encounter Results Not [...] Addre ss Type Group MEDICARE MEDICARE PART [id number] 2002-[place] [phone] [address] Medicare A & B t 2 [id number] [place] [address] [facility] MEDICAID OF [id number] 2012-[place] [phone] [address] Medicaid [place] t 0 [id number] [place] [address] documented as of this encounter Advance Directives Name Relationship Healthcare Agent Communication Relationship Zoya "Lois Osullivan Child Health Care Agent [email or web address] [email or web address] [place] [address] [phone] Agent (Mobile) [email or web address]
--- OUTSIDE RECORDS SUMMARY | 2020-08-15 06:27 | XMS REPORT | Summary of Care ---
:1935 Author Organization [facility] Address [address] [place] [id number] Care Team Providers Name Role Phone Brian Martin MD Primary Care Provider Reason for Visit Reason Comments Follow-up (Routine) Status Reason Specialty Diagnoses / Referred By Referred To Procedures Contact Contact Authorized Physical Therapy Diagnoses Neck pain, chronic Upper back pain, chronic Martin, Procedures CONSULT/REFERRAL PHYSICAL THERAPY [place] PHYSICAL THERAPY EVALUATION LOW COMPLEX 20 MINS [place] PHYSICAL THERAPY EVALUATION MOD COMPLEX 30 MINS WV PHYSICAL THERAPY EVALUATION HIGH COMPLEX 45 MINS [place] THERAPEUTIC EXERCISES Sanjana Torres MD [place] NEUROMUSC REE DUCAT,1+ AREAS, EA 15 MIN [place] MANUAL THER TECH,1+REGIONS,EA 15 MIN [place] THERAPEUT ACTVITY DIRECT PT CONTACT EACH 15 MIN [place] SELF-CARE/HOME MGMT TRAINING EACH 15 MINUTES [address] [facility] [place] [address] Encounter Details Date Type Department Care Team Description 06/24/2020 Ancillary Visit [facility] Ryley Salinas MD [address] [place] [address] Chronic neck pain (Primary Dx); Physical Therapy- Vanesa Miller, PT [address] [place] [address] Chronic upper back pain; [place] Limited joint range of motio n; Professional Office Muscle w eakness (generalized); Building Impaired functional mobility and activity tolerance [address] [place] [address] [address] [place] [phone] Allergies Active Allergy Reactions Severity Noted Date Comments Amlodipine Other - See comments High 07/19/2017 Severe muscle pain Levofloxacin Nausea and/or High 08/05/2017 Vomiting Lisinopril Swelling 05/03/2017 Penicillins Other - See comments 10/08/2014 When re cirao IM Says feels like ic ewater in runni ng all over and fe els like passing ou t Does not recall getting any oth er way. [id number] Unknown - See 03/03/2018 Muscle pain Reductase Inhibitors comments documented as of this encounter (statuses as of 06/25/2020) Medications Medication Sig Dispensed Refills Start Date [...] as of this encounter (statuses as of 06/25/2020) Active Problems Problem Noted Date Slurred speech 11/28/2017 Stroke 11/27/2017 Dizziness 10/07/2017 At risk for seizures 05/10/2017 IVH (intraventricular hemorrhage) 05/03/2017 Acquired obstructive hydrocephalus 05/03/2017 SAH (subarachnoid hemorrhage) 05/03/2017 Essential hypertension 05/03/2017 Vertebral artery dissection documented as of this encounter (statuses as of 06/25/2020) Resolved Problems Problem Noted Date Resolved Date [...] as of this encounter (statuses as of 06/25/2020) Social History Tobacco Use Types Packs/Day Years [...] encounter Progress Notes Vanesa Miller, PT - 06/24/2020 2:20 PM CDT Date: June 24, 2020 Subjective: Patient complaint of L side neck/upperback area 1. Chronic neck pain 2. Chronic upper back pain 3. Limited joint range of motion 4. Muscle weakness (generalized) 5. Impaired functional mobility and activity tolerance Objective: Outpatient PT Treatment Row Name 06/24/20 1400 General Visit Number 2 General Comments 2 of 8 visits Precautions Choose Number of Precautions: 1 Precautions 1: SEE EVAL: No massage on neck Pain Assessment Pain Score per patient not very much Post-Treatment Pain Score 0 - No pain Pain Location Neck upperback Pain Orientation Posterior Pain Descriptors Therapeutic Exercise Enter Number of Therapeutic Exercise Activities: 4 Therapeutic Exercise Activity 1 Upper trapz, SCM, Levator scapulae stretch: 5" X 10 Therapeutic Exercise Activity 2 Sitting in W/C:Shoulder shrug, sh rotation, sh horizontal abduction,Sh blades protraction/retraction, trunk rotation x 10 ea Therapeutic Exercise Acitivity 3 Sitting in W/C: Thoracic extension with ball, trunk forward bend x 10ea Therapeutic Exercise Activity 4 Iglesia: extension/flexion Assessment: Patient tolerated PT management therapeutic exercises with constant verbal and tactile cues.Denies pain after PT. Plan: To continue PT as planned emphasis on Modalities as needed to control pain,Therapeutic Exercises & Activities to increase cervical ROM, strength, flexibility, and improve functional performance, Manual Therapy to upper back only,Safety and Precaution Education for 2x/week x 8 visits Vanesa Miller,PT [place] License: [id number] documented in this encounter Plan of Treatment Date Type Specialty Care Team Description 06/26/2020 Ancillary Visit Physical Therapy Ryley Salinas MD [address] [place] [phone] Katherine Dodd, [address] [address] 07/03/2020 Ancillary Visit Physical Therapy Ryley Salinas MD [address] [place] [phone] Katherine Dodd, [address] [address] 07/05/2020 Ancillary Visit Physical Therapy Ryley Salinas MD [address] [place] [address] Katherine Dodd, [address] [address] 08/12/2020 Office Visit Internal Medicine Patti Martin MD [address] [address] [phone] Health Maintenance Due Date Last Done Comments [...] of this encounter Implants Implanted Type Area Environmental Law Professor Device Shelf Model / Identifier Expiration Serial / Lot Date Bipolar Head, Hu Uhr Bipolar [id number] #Uh1-48-28 [Uh1-48-28] BIPOLAR Left: [place] 02/02/2022 UH1-48-28 / Implanted: Qty: 1 on 11/29/2017 by Reid Tim MD at [facility] head Hip 0 / [id number] Head, [place] V40 Cocr Lfit 28mm/0 #[id number] Femoral Left: Frederic 07/20/2022 [id number] / Implanted: Qty: 1 on 11/29/2017 by Reid Tim MD at [facility] Head Hip 0 / [id number] Stem, Hu Size 7 Accolade Ii 127deg #[id number] Femoral Left: Hu 08/10/2022 [id number] / Implanted: Qty: 1 on 11/29/2017 by Reid Tim MD at [facility] Stem Hip 0 / [id number] documented as of this encounter Results Not [...] Addre ss Type Group MEDICARE MEDICARE PART [id number] 2002-[place] [phone] [address] [facility] Medicare A & B t 2 [id number] [place] [address] [facility] MEDICAID OF [id number] 2012-[place] [phone] [address] Medicaid [place] t 0 [id number] [place] [address] documented as of this encounter Advance Directives Name Relationship Healthcare Agent Communication Relationship Zoya "Lois Osullivan [facility] Care Agent [email or web address] [email or web address] Haines [facility] 97 [phone] Agent (Mobile) [email or web address]
--- OUTSIDE RECORDS SUMMARY | 2020-08-15 06:28 | XMS REPORT | Summary of Care ---
:1935 Author Organization [facility] - [facility] Address [address] [id number] Care Team Providers Name Role Phone Brian Martin MD Primary Care Provider Reason for Visit Reason Comments Follow-up (Routine) Status Reason Specialty Diagnoses / Referred By Referred To Procedures Contact Contact Authorized Physical Therapy Diagnoses Neck pain, chronic Upper back pain, chronic Martin, Procedures CONSULT/REFERRAL PHYSICAL THERAPY IN PHYSICAL THERAPY EVALUATION LOW COMPLEX 20 MINS IN PHYSICAL THERAPY EVALUATION MOD COMPLEX 30 MINS IN PHYSICAL THERAPY EVALUATION HIGH COMPLEX 45 MINS IN THERAPEUTIC EXERCISES Sanjana Torres MD IN NEUROMUSC REE DUCAT,1+ AREAS, EA 15 MIN IN MANUAL THER TECH,1+REGIONS,EA 15 MIN IN THERAPEUT ACTVITY DIRECT PT CONTACT EACH 15 MIN IN SELF-CARE/HOME MGMT TRAINING EACH [address] [place] [address] Dr Man[address] [place] [address] Encounter Details Date Type Department Care Team Description 07/09/2020 Ancillary Visit [facility] Farideh Martin MD [address] [place] [address] Dr Manley [address] [place] [address] Chronic neck pain (Primary Dx); Physical Therapy- Lidya Anguiano, PT [address] [place] [address] Chronic upper back pain; [place] Limited joint range of motio n; Professional Office Muscle w eakness (generalized); Building Impaired functional mobility and activity tolerance [address] [place] [address] Dr. Elise [address] [place] [phone] Allergies Active Allergy Reactions Severity Noted Date Comments Amlodipine Other - See comments High 07/19/2017 Severe muscle pain Levofloxacin Nausea and/or High 08/05/2017 Vomiting Lisinopril Swelling 05/03/2017 Penicillins Other - See comments 10/08/2014 When re ciaro IM Says feels like ic ewater in runni ng all over and fe els like passing ou t Does not recall getting any oth er way. [id number]-Eru Unknown - See 03/03/2018 Muscle pain Reductase Inhibitors comments documented as of this encounter (statuses as of 07/09/2020) Medications Medication Sig Dispensed Refills Start Date [...] as of this encounter (statuses as of 07/09/2020) Active Problems Problem Noted Date Slurred speech 11/28/2017 Stroke 11/27/2017 Dizziness 10/07/2017 At risk for seizures 05/10/2017 IVH (intraventricular hemorrhage) 05/03/2017 Acquired obstructive hydrocephalus 05/03/2017 SAH (subarachnoid hemorrhage) 05/03/2017 Essential hypertension 05/03/2017 Vertebral artery dissection documented as of this encounter (statuses as of 07/09/2020) Resolved Problems Problem Noted Date Resolved Date [...] as of this encounter (statuses as of 07/09/2020) Social History Tobacco Use Types Packs/Day Years Used Date Never Smoker Smokeless Tobacco: Never Used Alcohol Use Drinks/Week oz/Week Comments No Sex Assigned at Date Recorded Not on file COVID-19 Exposure Response Date Recorded In the last month, have you been in contact with No / Unsure 07/09/2020 3:06 PM CDT someone who was confirmed or suspected to have Coronavirus / COVID-19? documented as of this encounter Last Filed Vital Signs Not on filedocumented in this encounter Progress Notes Lidya Anguiano, PT - 07/09/2020 3:00 PM CDT Physical Therapy Treatment Date: July 09, 2020 Subjective: " I guess I am alright. I am feeling better." 1. Chronic neck pain 2. Chronic upper back pain 3. Limited joint range of motion 4. Muscle weakness (generalized) 5. Impaired functional mobility and activity tolerance Objective: Outpatient PT Treatment Row Name 07/09/20 1600 General Visit Number 6 Chart Reviewed Yes Family/Caregiver Present No General Comments 6 of 8 visits Precautions Choose Number of [...] Therapeutic Exercise Activity 4 Sitting in WC: Igleisa: flexion and abduction 1'ea Therapeutic Exercise Activity 5 Sitting: L2 TB 6 and 12 oclock x10ea, rows x10 Therapeutic Activity Therapeutic Activity 1 Bracial nerve glides x5 (not today) Therapeutic Activity 2 Restorator for UE 1' fwd/ 1' bkwd Assessment: Pt with good ROM, patient required rest break between activities on mat and activities in gym. Patient with good tolerance as long as she takes rest break. Patient progressing well. Plan: Patient to continue with POC focusing on strengthening, decreasing pain, and increasing overall mobility. Lidya Pickard, PT [place] PT License [id number] [facility] Rehabilitation Services Department (phone) (fax) documented in this encounter Plan of Treatment Date Type Specialty Care Team Description 07/11/2020 Ancillary Visit Physical Therapy Kaye Martin MD [address] [place] [address] [phone] Katherine Dodd, [address] [address] 07/16/2020 Ancillary Visit Physical Therapy Kaye Martin MD [address] [place] [address] [phone] Katherine Dodd, [address] [address] 07/18/2020 Ancillary Visit Physical Therapy Kaye Martin MD [address] [place] [address] [address] [phone] Katherine Dodd, [address] [address] 08/12/2020 Office Visit Internal Medicine Patti Martin MD [address] [place] [address] 77 15 [phone] Health Maintenance Due Date Last Done Comments [...] of this encounter Implants Implanted Type Area Machine Room Operator Device Shelf Model / Identifier Expiration Serial / Lot Date Bipolar Head, Hu Uhr Bipolar [id number] #[id number] [Uh1-48-28] BIPOLAR Left: [place] 02/02/2022 UH1-48-28 / Implanted: Qty: 1 on 11/29/2017 by Reid Tim MD at [facility] head Hip 0 / [id number] Head, Hu V40 Cocr Lfit 28mm/0 #[id number] Femoral Left: Hu 07/20/2022 [id number] / Implanted: Qty: 1 on 11/29/2017 by Reid Tim MD at [facility] Head Hip 0 / [id number] Stem, [place] Size 7 Accolade Ii 127deg #[id number] Femoral Left: Hu 08/10/2022 [id number] / Implanted: Qty: 1 on 11/29/2017 by Reid Tim MD at [facility] Stem Hip 0 / [id number] documented as of this encounter Results Not [...] Addre ss Type Group MEDICARE MEDICARE PART [id number] 2002-[place] [phone] Medicare A & B t 2 [id number] [place] [address] [facility] MEDICAID OF [id number] 2012-Presen [phone] [address] Medicaid [place] t 0 [id number] [place] [address] documented as of this encounter Advance Directives Name Relationship Healthcare Agent Communication Relationship Zoya "Lois Osullivan [facility] Health Care Agent [email or web address] Haines [facility] Agent (Mobile) [email or web address]
--- OUTSIDE RECORDS SUMMARY | 2020-08-15 06:29 | XMS REPORT | Summary of Care ---
:1935 Author Organization [facility] - [facility] Address [address] [id number] Care Team Providers Name Role Phone Brian Martin MD Primary Care Provider Reason for Visit Reason Comments Follow-up (Routine) Status Reason Specialty Diagnoses / Referred By Referred To Procedures Contact Contact Authorized Physical Therapy Diagnoses Neck pain, chronic Upper back pain, chronic Martin, Procedures CONSULT/REFERRAL PHYSICAL THERAPY [place] PHYSICAL THERAPY EVALUATION LOW COMPLEX 20 MINS MS PHYSICAL THERAPY EVALUATION MOD COMPLEX 30 MINS MS PHYSICAL THERAPY EVALUATION HIGH COMPLEX 45 MINS MS THERAPEUTIC EXERCISES Sanjana Torres MD MS NEUROMUSC REE DUCAT,1+ AREAS, EA 15 MIN MS MANUAL THER TECH,1+REGIONS,EA 15 MIN [place] THERAPEUT ACTVITY DIRECT PT CONTACT EACH 15 MIN MS SELF-CARE/HOME MGMT TRAINING EACH [address] [place] [address] Dr Man[address] [place] [address] Encounter Details Date Type Department Care Team Description 07/11/2020 Ancillary Visit [facility] Farideh Martin MD [address] [place] [address] Dr Manley [address] [place] [address] Chronic neck pain (Primary Dx); Physical Therapy- Vanesa Miller, PT [address] [place] [address] Chronic upper back pain; [place] Limited joint range of motio n; Professional Office Muscle w eakness (generalized); Building Impaired functional mobility and activity tolerance [address] Elise [address] [place] [phone] Allergies Active Allergy Reactions Severity Noted Date Comments Amlodipine Other - See comments High 07/19/2017 Severe muscle pain Levofloxacin Nausea and/or High 08/05/2017 Vomiting Lisinopril Swelling 05/03/2017 Penicillins Other - See comments 10/08/2014 When re cirao IM Says feels like ic ewater in runni ng all over and fe els like passing ou t Does not recall getting any oth er way. [id number]-Zlg-Tef Unknown - See 03/03/2018 Muscle pain Reductase Inhibitors comments documented as of this encounter (statuses as of 07/11/2020) Medications Medication Sig Dispensed Refills Start Date [...] as of this encounter (statuses as of 07/11/2020) Active Problems Problem Noted Date Slurred speech 11/28/2017 Stroke 11/27/2017 Dizziness 10/07/2017 At risk for seizures 05/10/2017 IVH (intraventricular hemorrhage) 05/03/2017 Acquired obstructive hydrocephalus 05/03/2017 SAH (subarachnoid hemorrhage) 05/03/2017 Essential hypertension 05/03/2017 Vertebral artery dissection documented as of this encounter (statuses as of 07/11/2020) Resolved Problems Problem Noted Date Resolved Date [...] as of this encounter (statuses as of 07/11/2020) Social History Tobacco Use Types Packs/Day Years [...] encounter Progress Notes Vanesa Miller, PT - 07/11/2020 2:40 PM CDT Physical Therapy Treatment Date: July 11, 2020 Subjective: Denies pain , mostly her neck pain is in the morning when she wakes up. 1. Chronic neck pain 2. Chronic upper back pain 3. Limited joint range of motion 4. Muscle weakness (generalized) 5. Impaired functional mobility and activity tolerance Objective: Outpatient PT Treatment Row Name 07/11/20 1400 General Visit Number 7 Chart Reviewed Yes Family/Caregiver Present No General Comments 7 of 8 visits Precautions Choose Number of [...] rows x10 Therapeutic Activity Therapeutic Activity 1 Brachial nerve glides x5 Therapeutic Activity 2 Restorator for UE 1' fwd/ 1' bkwd Assessment: Patient required persistent verbal cues during therapeutic exercises for proper body mechanics. Denied pain after PT. Plan: Patient to continue with POC focusing on strengthening, decreasing pain, and increasing overall mobility. Vanesa Miller,PT [place] License: [id number] documented in this encounter Plan of Treatment Date Type Specialty Care Team Description 07/16/2020 Ancillary Visit Physical Therapy Kaye Martin MD [address] [place] [address] [address] [phone] Katherine Dodd, [address] [address] 07/18/2020 Ancillary Visit Physical Therapy Kaye Martin MD [address] [place] [address] [address] Katherine Dodd, [address] [address] 08/12/2020 Office Visit Internal Medicine Patti Martin MD [address] [place] [address] [phone] Health Maintenance Due Date Last Done Comments [...] General Yes Miller, to be able to Mercjulia Lopez PT get her head up to be able to get her eyes check. documented as of this encounter Implants Implanted Type Area Cardiac Cath Lab Technologist Device Shelf Model / Identifier Expiration Serial / Lot Date Bipolar Head, Hu Uhr Bipolar [id number] #Uh1-48-28 [Uh1-48-28] BIPOLAR Left: Hu 02/02/2022 UH1-48-28 / Implanted: Qty: 1 on 11/29/2017 by Reid Tim MD at [facility] head Hip 0 / [id number] Head, Hu V40 Cocr Lfit 28mm/0 #[id number] Femoral Left: [place] 07/20/2022 6260-9-128 / Implanted: Qty: 1 on 11/29/2017 by Reid Tim MD at [facility] Head Hip 0 / [id number] Stem, Hu Size 7 Accolade Ii 127deg #[id number] Femoral Left: [place] 08/10/2022 [id number] / Implanted: Qty: 1 on 11/29/2017 by Reid Tim MD at [facility] Stem Hip 0 / [id number] documented as of this encounter Results Not [...] Addre ss Type Group MEDICARE MEDICARE PART [id number] 2002-Presap [phone] [address] Medicare A & B t 2 [id number] [place] [address] [facility] MEDICAID OF [id number] 2012-Presap [phone] [address] Medicaid [place] t 0 [id number] [place] [address] documented as of this encounter Advance Directives Name Relationship Healthcare Agent Communication Relationship Zoya "Ailyn" Abran [facility] [place] Care Agent [email or web address] Grzegorz Haines [facility] Agent (Mobile) [email or web address]
--- OUTSIDE RECORDS SUMMARY | 2020-08-15 06:29 | XMS REPORT | Summary of Care ---
:1935 Author Organization [facility] - [facility] Address [address] [phone] Care Team Providers Name Role Phone Brian Martin MD Primary Care Provider Reason for Visit Reason Comments Follow-up (Routine) Status Reason Specialty Diagnoses / Referred By Referred To Procedures Contact Contact Authorized Physical Therapy Diagnoses Neck pain, chronic Upper back pain, chronic Martin, Procedures CONSULT/REFERRAL PHYSICAL THERAPY [place] PHYSICAL THERAPY EVALUATION LOW COMPLEX 20 MINS [place] PHYSICAL THERAPY EVALUATION MOD COMPLEX 30 MINS [place] PHYSICAL THERAPY EVALUATION HIGH COMPLEX 45 MINS [place] THERAPEUTIC EXERCISES Sanjana Torres MD [place] NEUROMUSC REE DUCAT,1+ AREAS, EA 15 MIN [place] MANUAL THER TECH,1+REGIONS,EA 15 MIN [place] THERAPEUT ACTVITY DIRECT PT CONTACT EACH 15 MIN [place] SELF-CARE/HOME MGMT TRAINING EACH [address] [place] [address] Dr Man[address] [place] [address] Encounter Details Date Type Department Care Team Description 07/16/2020 Ancillary Visit [facility] Farideh Martin MD [address] [place] [address] Dr Manley [address] [place] [address] Chronic neck pain (Primary Dx); Physical Therapy- Katherine Dodd, BENZENE OPERATOR [address] [place] [address] Chronic upper back pain; [place] Limited joint range of motio n; Professional Office Muscle w eakness (generalized); Building Impaired functional mobility and activity tolerance [address] [place] [address] Dr. Elise [address] [place] [phone] Allergies Active Allergy Reactions Severity Noted Date Comments Amlodipine Other - See comments High 07/19/2017 Severe muscle pain Levofloxacin Nausea and/or High 08/05/2017 Vomiting Lisinopril Swelling 05/03/2017 Penicillins Other - See comments 10/08/2014 When re cirao IM Says feels like ic ewater in runni ng all over and fe els like passing ou t Does not recall getting any oth er way. [id number]-Bmw Unknown - See 03/03/2018 Muscle pain Reductase Inhibitors comments documented as of this encounter (statuses as of 07/17/2020) Medications Medication Sig Dispensed Refills Start Date [...] as of this encounter (statuses as of 07/17/2020) Active Problems Problem Noted Date Slurred speech 11/28/2017 Stroke 11/27/2017 Dizziness 10/07/2017 At risk for seizures 05/10/2017 IVH (intraventricular hemorrhage) 05/03/2017 Acquired obstructive hydrocephalus 05/03/2017 SAH (subarachnoid hemorrhage) 05/03/2017 Essential hypertension 05/03/2017 Vertebral artery dissection documented as of this encounter (statuses as of 07/17/2020) Resolved Problems Problem Noted Date Resolved Date [...] as of this encounter (statuses as of 07/17/2020) Social History Tobacco Use Types Packs/Day Years Used Date Never Smoker Smokeless Tobacco: Never Used Alcohol Use Drinks/Week oz/Week Comments No Sex Assigned at Date Recorded Not on file COVID-19 Exposure Response Date Recorded In the last month, have you been in contact with No / Unsure 07/16/2020 2:19 PM CDT someone who was confirmed or suspected to have Coronavirus / COVID-19? documented as of this encounter Last Filed Vital Signs Not on filedocumented in this encounter Progress Notes Katherine Dodd, BENZENE OPERATOR - 07/16/2020 2:20 PM CDT Physical Therapy Treatment Date: July 17, 2020 Subjective: Pt reports her neck feels pretty good but she doesn't feel very good today. She had no specific complaints. 1. Chronic neck pain 2. Chronic upper back pain 3. Limited joint range of motion 4. Muscle weakness (generalized) 5. Impaired functional mobility and activity tolerance Objective: Outpatient PT Treatment Row Name 07/16/20 1400 General Visit Number 8 Chart Reviewed Yes Family/Caregiver Present No General Comments 8 Precautions Precautions 1: SEE EVAL: No massage on neck Pain Assessment Pain Score 0 - No pain Pain Location Neck upperback Therapeutic Exercise Therapeutic Exercise Activity 1 Upper trapz, SCM, Levator scapulae stretch: 2 X 30"ea Therapeutic Exercise Activity 2 Shoulder shrug, sh bkwd rotation, sh horizontal abduction,Sh blades protraction/retraction x15ea; trunk rotation x 10 ea Therapeutic Exercise Acitivity 3 Not today - Sitting in W/C: Thoracic extension with ball 1', trunk forward bend x 10 Therapeutic Exercise Activity 4 Sitting in WC: [place]lesia: flexion and abduction 1'ea Therapeutic Exercise Activity 5 Sitting: L2 TB 6 and 12 oclock x10ea, rows x10 Therapeutic Activity Therapeutic Activity 2 UBE fwd/bkwd L1 2'/2' HEP: Continue HEP as instructed. Pt reports compliance. Assessment: Pt with decreased core strength with sitting EOB today. She continues to require verbal,visual and tactile cues for stretches and exercises. Pt tolerated treatment fair. Plan: Continue with POC 2 x 8 to decrease pain, increase cervical ROM and improve functional mobility. Will add/advance exercises as able. Katherine Dodd PTA [place] Lic#[id number] Supervised by: Lidya Pickard PT [facility] Rehabilitation Services Dept. [phone] (phone) documented in this encounter Plan of Treatment Date Type Specialty Care Team Description 07/18/2020 Ancillary Visit Physical Therapy Kaye Martin MD [address] [place] [address] [phone] Katherine Dodd BENZENE OPERATOR [address] [place] [address] 08/12/2020 Office Visit Internal Medicine Patti Martin MD [address] [place] [address] Health Maintenance Due Date Last [...] of this encounter Implants Implanted Type Area Specialty Development Consultant Device Shelf Model / Identifier Expiration Serial / Lot Date Bipolar Head, Hu Uhr Bipolar [id number] #Uh1-48-28 [Uh1-48-28] BIPOLAR Left: Hu 02/02/2022 UH1-48-28 / Implanted: Qty: 1 on 11/29/2017 by Reid Tim MD at [facility] head Hip 0 / [id number] Head, Hu V40 Cocr Lfit 28mm/0 #[id number] Femoral Left: [place] 07/20/2022 6260-9-128 / Implanted: Qty: 1 on 11/29/2017 by Reid Tim MD at [facility] Head Hip 0 / [id number] Stem, Hu Size 7 Accolade Ii 127deg #[id number] Femoral Left: [place] 08/10/2022 [id number] / Implanted: Qty: 1 on 11/29/2017 by Reid Tim MD at [facility] Stem Hip 0 / [id number] documented as of this encounter Results Not [...] Addre ss Type Group MEDICARE MEDICARE PART [id number] 2002-[place] [phone] [address] Medicare A & B t 2 [id number] [place] [address] [facility] MEDICAID OF [id number] 2012-[place] [phone] [address] Medicaid [place] t 0 [id number] [place] [address] documented as of this encounter Advance Directives Name Relationship Healthcare Agent Communication Relationship Zoya Osullivan (Susie) [facility] Care Agent [email or web address] Ty H[place] [address] [phone] Agent (Mobile) [email or web address]
--- OUTSIDE RECORDS SUMMARY | 2020-08-15 06:30 | XMS REPORT | Summary of Care ---
:1935 Author Organization [facility] Address [address] [place] [address] Care Team Providers Name Role Phone Brian Martin MD Primary Care Provider Reason for Referral MRI/CAT Scan (STAT) Status Reason Specialty Diagnoses / Referred By Referred To Procedures Contact Contact New Request Diagnostic Diagnoses Confusion Acute nonintractable headache, unspecified headache type Anna, K Radiology Procedures CT HEAD WO CONTRAST Blanca, PAC [address] [place] [address] Radiology Services (JOSIAH) Status Reason Specialty Diagnoses / Referred By Referred To Procedures Contact Contact New Request Diagnostic Diagnoses Confusion Acute nonintractable headache, unspecified headache type Anna, K Radiology Procedures XR CHEST 1 VW Blanca, PAC [address] [facility] [address] [place] [address] Reason for Visit Reason Comments Headache Auth/Cert Status Reason Specialty Diagnoses / Referred By Referred To Procedures Contact Contact Emergency Medicine Ad[facility] Em ergency Dept [address] [place] [address] Fax: Encounter Details Date Type Department Care Team Description 07/17/2020 Emergency ADC-Emergency Anna, K Blanca, Confusion (Primary Dx); Department PAC Acute nonintractable headache, unspecifi ed headache type; [address] [place] [address] Hypertension, unspecified type [address] [place] [address] [place] [phone] Allergies Active Allergy Reactions Severity Noted Date Comments Amlodipine Other - See comments High 07/19/2017 Severe muscle pain Levofloxacin Nausea and/or High 08/05/2017 Vomiting Lisinopril Swelling 05/03/2017 Penicillins Other - See comments 10/08/2014 When re sofia IM Says feels like ic ewater in runni ng all over and fe els like passing ou t Does not recall getting any oth er way. Kolkdhl-Ahc-Vfl Unknown - See 03/03/2018 Muscle pain Reductase Inhibitors comments documented as of this encounter (statuses as of 07/17/2020) Medications Medication Sig Dispensed Refills Start Date End Date Status docusate 100 mg capsule Take 100 mg by 0 Active mouth daily. MAGNESIUM CITRATE ORAL Take 1 capsule 0 Active by mouth 2 (two) times daily. aspirin 81 mg chewable Take 1 tablet 30 tablet 5 12/08/2017 Active tablet by mouth daily. D-MANNOSE ORAL 1000mg 0 02/22/2018 Acti ve w/cranberry 400mg COQ10, UBIQUINOL, ORAL 200 mg. 0 02/22/2018 Active clopidogreL 75 mg Take 1 tablet 90 tablet 3 01/09/2020 Active tabletIndications: History by mouth of stroke daily. meloxicam 7.5 mg Take 1 tablet 60 tablet 3 06/03/2020 Active tabletIndications: Neck by mouth pain, chronic, Upper back daily. If not pain, chronic helping may increase up to 2 daily. Diclofenac Sodium 1 % APPLY TO 600 g 3 06/12/2020 Active gelIndications: Chronic AFFECTED neck pain, Chronic pain of AREA(S) EVERY both hips 8 (EIGHT) HOURS NEEDED FOR PAIN (SCALE 4-6). hydroCHLOROthiazide 25 mg Take 2 tablets 30 tablet 0 0 Active tabletIndications: by mouth every Hypertension, unspecified morning. type documented as of this encounter (statuses as [...] been in contact with No / Unsure 07/17/2020 10:28 AM CDT someone who was confirmed or suspected to have Coronavirus / COVID-19? documented as of this encounter Last Filed Vital Signs Vital Sign Reading Time Taken Comments Blood Pressure 174/76 07/17/2020 1:30 PM CDT Pulse 70 07/17/2020 1:30 PM CDT Temperature 36.9 C (98.4 F) 07/17/2020 10:32 AM CDT Respiratory Rate 17 07/17/2020 1:30 PM CDT Oxygen Saturation 98% 07/17/2020 1:30 PM CDT Inhaled Oxygen Concentration - - Weight 61.2 kg (135 lb) 07/17/2020 10:52 AM CDT Height - - Body Mass Index 20.53 06/03/2020 3:31 PM CDT documented in this encounter Discharge Instructions Levi Vázquez PAC - 07/17/2020Follow up with PCP this week Keep BP log at home, twice daily AttachmentsThe following attachments cannot be sent through Care Everywhere.High Blood Pressure, Controlling (Luxembourger)documented in this encounter ED Notes Dulce Dixon RN - 07/17/2020 10:29 AM CDTPt c/o headache that started this morning when she woke up. Denies weakness/dizziness. No acute neuro symptoms noted. 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 Denies CP/blurred vision. documented in this encounter Miscellaneous Notes ED Nurse Note - Bambi Zimmer RN - 07/17/2020 3:10 PM CDTPt given printed and verbal discharge instructions regarding confusion, encouraged hydration. 0 Prescriptions provided Pt verbalized understanding of instructions, pt awake alert oriented, resp reg unlabored, skin w/d, color appropriate for race, moves all ext well,pt encouraged to follow up with PCP. Advised to seek medical attention for new/prolonged/worsening of symptoms, Symptoms improved No adverse reaction to meds given in ER noted upon discharge PIV d'cd, dressing to site, catheter in tact. Awake, alert oriented, resp reg unlabored, skin w/d, pt leaving via personal wheelchair, in no apparent distress. D Nurse Note - Bambi Zimmer RN - 07/17/2020 2:06 PM CDTDaughter at bedside; declining Esidrix at this time. 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 documented in this encounter Plan of Treatment Date Type Specialty Care Team Description 07/18/2020 Ancillary Visit Physical Therapy Kaye Martin MD [address] [place] [address] [place] [address] Katherine Dodd, [address] [address] 08/12/2020 Office Visit Internal Medicine Patti Martin MD [address] [address] [phone] Name Type Priority Associated Diagnoses Date/Ti me URINE CULTURE LAB STAT Confusion 07/17/2020 12:25 PM Acute nonintractable CDT headache, unspecified headache type BLOOD CULTURE SCREEN LAB STAT Confusion 020 11:21 AM CDT BLOOD CULTURE SCREEN LAB STAT Confusion 020 11:06 AM CDT Name Type Priority Associated Diagnoses Order S chedule URINE CULTURE LAB Routine Confusion ONCE for 1 Occurrences Acute nonintractable headach e, starting 07/17/2020 until unspecified headache type Health Maintenance Due Date Last Done Comments [...] of this encounter Implants Implanted Type Area Construction Carpenter Device Shelf Model / Identifier Expiration Serial / Lot Date Bipolar Head, Hu Uhr Bipolar [id number] #[id number] [[id number]] BIPOLAR Left: Hu 02/02/2022 [id number] / Implanted: Qty: 1 on 11/29/2017 by Reid Tim MD at [facility] head Hip 0 / [id number] Head, Hu V40 Cocr Lfit 28mm/0 #[id number] Femoral Left: Hu 07/20/2022 [id number] / Implanted: Qty: 1 on 11/29/2017 by Reid Tim MD at [facility] Head Hip 0 / [id number] Stem, Hu Size 7 Accolade Ii 127deg #[id number] Femoral Left: [place] 08/10/2022 [id number] / Implanted: Qty: 1 on 11/29/2017 by Reid Tim MD at [facility] Stem Hip 0 / [id number] documented as of this encounter Procedures Procedure Name Priority Date/Time Associated Diagnosis Comme nts URINALYSIS STAT 07/17/2020 12:25 Confusion Results for this PM CDT Acute nonintractable procedu re are in headache, unspecified the re sults headache type section. XR CHEST 1 VW JOSIAH 07/17/2020 11:45 Confusion Results for this AM CDT Acute nonintractable procedu re are in headache, unspecified the re sults headache type section. CT HEAD WO CONTRAST STAT 07/17/2020 11:43 Confusion Results for this AM CDT Acute nonintractable procedu re are in headache, unspecified the re sults headache type section. BLOOD CULTURE STAT 07/17/2020 11:21 Confusion SCREEN AM CDT LACTIC ACID WHOLE STAT 07/17/2020 11:20 Confusion Results for this BLOOD AM CDT Acute nonintractable procedu re are in headache, unspecified the re sults headache type section. BLOOD CULTURE STAT 07/17/2020 11:06 Confusion SCREEN AM CDT COVID-19 (ID NOW STAT 07/17/2020 10:57 Confusion Results for this RAPID TESTING) AM CDT Acute nonintractable proce dure are in headache, unspecified the re sults headache type section. CBC WITH DIFF STAT 07/17/2020 10:56 Confusion Results for this AM CDT Acute nonintractable procedu re are in headache, unspecified the re sults headache type section. COMP. METABOLIC STAT 07/17/2020 10:56 Confusion Results for this PANEL (15142) AM CDT Acute nonintractable proced ure are in headache, unspecified the re sults headache type section. TROPONIN I STAT 07/17/2020 10:56 Confusion Results for this AM CDT Acute nonintractable procedu re are in headache, unspecified the re sults headache type section. MAGNESIUM STAT 07/17/2020 10:56 Confusion Results for this AM CDT Acute nonintractable procedu re are in headache, unspecified the re sults headache type section. EKG-12 LEAD Routine 07/17/2020 10:34 AM CDT NOTICE OF PRIVACY Routine 07/17/2020 10:20 PRACTICES AM CDT CONSENT/REFUSAL FOR Routine 07/17/2020 10:20 DIAGNOSIS AND AM CDT TREATMENT documented in this encounter Results URINALYSIS (07/17/2020 12:25 PM CDT) Pathologist Sig nature APPEARANCE Clear Clear [facility] COLOR Straw (A) Yellow [facility] PH 8.0 4.8 - 8.0 [facility] SP GRAVITY 1.003 1.003 - 1.030 [facility] GLU U QUAL Normal Normal [facility] BLOOD 1+ (A) Negative [facility] KETONES Negative Negative [facility] PROTEIN Negative Negative [facility] UROBILIN Normal Normal [facility] BILIRUBIN Negative Negative [facility] NITRITE Negative Negative [facility] LEUK CINDY Negative Negative [facility] RBC/HPF 2 0 - 3 HPF [facility] WBC/HPF 6 (H) 0 - 5 HPF [facility] BACTERIA Few (A) Negative [facility] AMORPHOUS Rare Rare HPF [facility] SQ EPITH 4 HPF [facility] Specimen Urine - URINE, CATHETERIZED Performing Organization Address City/State/Zipcode Phone Number [facility] CLIA: [id number] [place] [address] XR CHEST 1 VW (07/17/2020 11:45 AM CDT) Specimen Narrative Performed At HISTORY: Confusion. PACS/VR/DOSE FINDINGS: Comparison is made with 2018 study. AP view of the chest showed normal appearance of the cardiome diastinal silhouette. No acute pneumonia, pleural effusion, pulmonary c ongestion detected. Old fracture deformity in the axillary segment of rig ht seventh rib noted. Occlusion device is seen projected over the right side of the heart. CONCLUSIONS: No radiographic signs of ac [place] cardiopulmonary disease. Procedure Note [facility], Radiant Results Inft User - 2019 11:49 AM CDT HISTORY: Confusion. FINDINGS: Comparison is made with 2018 study. AP view of the chest showed normal appearance of the cardiome diastinal silhouette. No acute pneumonia, pleural effusion, pulmonary c ongestion detected. Old fracture deformity in the axillary segment of rig ht seventh rib noted. Occlusion device is seen projected over the right side of the heart. CONCLUSIONS: No radiographic signs of ac [place] cardiopulmonary disease. Performing Organization Address City/State/Zipcode Phone Number PACS/VR/DOSE CT HEAD WO CONTRAST (07/17/2020 11:43 AM CDT) Specimen Impressions Performed At PACS/VR/DOSE No acute intracranial hemorrhage or mass effect. Redemonstration of multifocal encephalomalacia/chronic infa rcts as detailed above. Preliminary Report Dictated by Resident: Clay Melgoza MD., have reviewed this stud y and agree with the above report. Narrative Performed At CT HEAD WO CONTRAST PACS/VR/DOSE HISTORY: c/o headache that started this morning when she woke up. Denies weakness/dizziness COMPARISON: CT head without contrast 01/[address] 08/29/20198 TECHNIQUE: Noncontrast CT imaging of the head was pe rformed and coronal and sagittal reconstructions were obtain ed and reviewed. FINDINGS: Prominence of the ventricles and cerebral sulci likely due to volume loss. No hydrocephalus or midline shift or pat hological extra-axial fluid collection is identified. The basal cist erns are unremarkable. No acute intraparenchymal hemorrhage or significant mass effect is seen. Encephalomalacia in the right greater th an left frontal lobes, left occipital lobe and right cerebellar penny sphere is grossly unchanged in comparison to the prior exam. Hypodensities in the per iventricular and deep white matter are nonspecific, but likely represent roberth rovascular ischemic changes. 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 Vascular calcification in the carotid si phons and intradural vertebral arteries is seen. The mastoid air cells and paranasal air sinuses are clear. The calvarium and central skull base are unremarkable. Hyperostosis frontalis interna is noted. Procedure Note [facility], Radiant Results Inft User - 2019 12:[address] HEAD WO CONTRAST HISTORY: c/o headache that started this morning when she woke up. Denies weakness/dizziness COMPARISON: CT head without contrast 01/[address] TECHNIQUE: Noncontrast CT imaging of th e head was performed and coronal and sagittal reconstructions were obtain ed and reviewed. FINDINGS: Prominence of the ventricles and cerebra l sulci likely due to volume loss. No hydrocephalus or midline shift or pat hological extra-axial fluid collection is identified. The basal cist erns are unremarkable. No acute intraparenchymal hemorrhage or significant mass effect is seen. Encephalomalacia in the right greater th an left frontal lobes, left occipital lobe and right cerebellar penny sphere is grossly unchanged in comparison to the prior exam. Hypodensit ies in the periventricular and deep white matter are nonspecific, but likely represent microvascular ischemic changes. 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 Vascular calcification in the carotid si phons and intradural vertebral arteries is seen. The mastoid air cells and paranasal air sinuses are clear. The calvarium and central skull base are unremarkable. Hyperostosis frontalis interna is noted. IMPRESSION No acute intracranial hemorrhage or mass effect. Redemonstration of multifocal encephalomalacia/chronic infa rcts as detailed above. Preliminary Report Dictated by Resident: Clay Melgoza MD., have revie wed this study and agree with the above report. Performing Organization Address City/State/Zipcode Phone Number PACS/VR/DOSE Lactic Acid Whole Blood (07/17/2020 11:20 AM CDT) Pathologist Sig nature LACTIC ACID 1.34 mmol/L [facility] Specimen Blood - VENOUS Performing Organization Address City/State/Zipcode Phone Number [facility] CLIA: [id number] [place] [address] COVID-19 (ID NOW RAPID TESTING) (07/17/2020 10:57 AM CDT) SARS-CoV-2 Rapid ID Not Detected Not Detected [facility] Specimen Swab - NASOPHARYNGEAL SWAB Narrative Performed At ID NOW COVID-19 Assay is an isothermal nucleic [facility] acid amplification test intended for the qualitative detection of nucleic acid from SARS-CoV-2 viral RNA in nasopharyngeal (PRODUCT PROMOTER SALES PERSON) specimens. It is used under Emergency Use Authorization (EUA) by FDA. The limit of detection (LOD) of the assay is 125 Genome Equivalents/mL. A positive result is indicative of the presence of SARS-CoV-2 RNA. Clinical correlation with patient history and other diagnostic information is necessary to determine patient infection status. A negative (Not Detected) result does not preclude SARS-CoV-2 infection. In patients with clinical symptoms and other tests that are consistent with SARS-CoV-2 infection, negative results should be treated as presumptive negative and a new specimen should be tested with alternative PCR molecular test. Invalid: Please collect a new specimen for repeat patient testing if clinically indicated. Performing Organization Address [facility] Phone Number [facility] CLIA: [id number] [place] [address] [place] [address] Drive TROPONIN I (07/17/2020 10:56 AM CDT) Pathologist Sig wooju TROPONIN I 0.017 <=0.034 ng/mL [facility] Specimen Blood - VENOUS Narrative Performed At Equal or Less than 0.034 ng/ml---Normal [facility] Note: Cardiac troponin begins to rise 3-4 hours after the onset of ischemia. Repeat in 4-6 hours if the sample was drawn within 3-4 hours of the onset of the symptom and found normal. Between 0.035 and 0.120 ng/mL--- Borderline. Questionable myocardial injury or necros is Note: Serial measurement may be necessary to confirm or exclude the diagnosis of myocardial injury or necrosis; Clinical correlation (symptoms, EKGs, imaging studies, and others) required; Repeat in 4-6 hours if clinically indicated. Equal or Higher than 0.121 ng/mL---Abnormal. Myocardial Injury or Necrosis Likely Biotin has been reported to cause a negative bias, interpret results relative to patient's use of biotin. Performing Organization Address [facility] Phone Number [facility] CLIA: [id number] [place] [address] MAGNESIUM (07/17/2020 10:56 AM CDT) Pathologist [facility] wooju MAGNESIUM 2.0 1.7 - 2.4 mg/dL [facility] Specimen Blood - VENOUS Performing Organization Address [facility] Phone Number [facility] CLIA: [id number] [place] [address] COMP. METABOLIC PANEL ([address]) (07/17/2020 10:56 AM CDT) [facility] NA 136 135 - 145 [facility] mmol/L [facility] K 4.1 3.5 - 5.0 [facility] mmol/L [facility] CL 100 98 - 108 mmol/L [facility] CO2 TOTAL 29 23 - 31 mmol/L [facility] AGAP 7 2 - 16 [facility] BUN 14 7 - 23 mg/dL [facility] GLUCOSE 124 (H) 70 - 110 mg/dL [facility] CREATININE 0.89 0.50 - 1.04 [facility] mg/dL [facility] TOTAL BILI 0.5 0.1 - 1.1 mg/dL [facility] CALCIUM 9.5 8.6 - 10.6 [facility] mg/dL [facility] T PROTEIN 7.2 6.3 - 8.2 g/dL [facility] ALBUMIN 3.9 3.5 - 5.0 g/dL [facility] ALK PHOS 77 34 - 122 U/L [facility] ALTv 11 5 - 35 U/L [facility] AST(SGOT) 34 13 - 40 U/L [facility] eGFR Calculation 60.7 mL/min/1.73m2 [facility] ([facility] [place]) eGFR Calculation 73.6 mL/min/1.73m2 [facility] ([facility]) [facility] Specimen Blood - VENOUS Narrative Performed At Association of Glomerular Filtration Rate (GFR) [facility] and Staging of Kidney Disease* + + +- + | GFR (mL/min/1.73 m2) | With Kidney Damage | Without Kidney Damage + + +- + | >90 | Stage one | Normal + + +- + | 60-89 | Stage two | Decreased GFR + + +- + | 30-59 | Stage three | Stage three + + +- + | 15-29 | Stage four | Stage four + + +- + | <15 (or dialysis) | Stage five | Stage five + + +- + *Each stage assumes the associated GFR level has been in effect for at least three months. Stages 1 to 5, with or without kidney disease, indicate chronic kidney disease. Notes: Determination of stages one and two (with eGFR >59mL/min/1.73 m2) requires estimation of kidney damage for at least three months as defined by structural or functional abnormalities of the kidney, manifested by either: Pathological abnormalities or Markers of kidney damage (including abnormalities in the composition of the blood or urine or abnormalities in imaging tests). Performing Organization Address City/State/Zipcode Phone Number [facility] CLIA: [id number] [place] [address] CBC WITH DIFF (07/17/2020 10:56 AM CDT) [facility] WBC 7.77 4.30 - 11.10 [facility] 10*3/L [facility] RBC 4.53 3.93 - 5.25 [facility] 10*6/L [facility] HGB 12.6 11.6 - 15.0 [facility] g/dL [facility] HCT 38.3 35.7 - 45.2 % [facility] MCV 84.5 80.6 - 95.5 fL [facility] MCH 27.8 25.9 - 32.8 pg [facility] MCHC 32.9 31.6 - 35.1 [facility] g/dL [facility] RDW-SD 38.0 (L) 39.0 - 49.9 fL [facility] RDW-CV 12.4 12.0 - 15.5 % [facility] PLT 230 166 - 358 [facility] 10*3/L [facility] MPV 9.9 9.5 - 12.9 fL [facility] NRBC/100 WBC 0.0 0.0 - 10.0 /100 [facility] WBCs [facility] NRBC x10^3 <0.01 10*3/L [facility] GRAN MAT (NEUT) % 80.1 % [facility] IMM GRAN % 0.30 % [facility] LYMPH % 14.4 % [facility] MONO % 3.7 % [facility] EOS % 0.6 % [facility] BASO % 0.9 % [facility] GRAN MAT x10^3(ANC) 6.22 1.88 - 7.09 [facility] 10*3/uL HOSPITAL LABORATORY IMM GRAN x10^3 <0.03 0.00 - 0.06 [facility] 10*3/uL HOSPITAL LAB[facility]ORY LYMPH x10^3 1.12 (L) 1.32 - 3.29 [facility] 10*3/uL [facility] MONO x10^3 0.29 (L) 0.33 - 0.92 [facility] 10*3/uL [facility] EOS x10^3 0.05 0.03 - 0.39 [facility] 10*3/uL [facility] BASO x10^3 0.07 0.01 - 0.07 [place] [address]*3/uL [facility] Specimen Blood - VENOUS Performing Organization Address City/State/Zipcode Phone Number [facility] CLIA: [id number] [place] [address] documented in this encounter Visit Diagnoses Diagnosis Confusion - Primary Unspecified psychosis Acute nonintractable headache, unspecifi ed headache type Hypertension, unspecified type documented in this encounter Administered Medications Medication Order MAR Action Action Date Dose Rate Site NaCl 0.9% (NS) bolus New Bag 07/17/2020 11:18 AM CDT 1,000 mL 99 9 mL/hr infusion 1,836 mL at 999 mL/hr, 1,836 mL (30 mL/kg 61.2 kg), IV Infusion, ONCE, 1 dose, Wed07/17/20 at 1200, STAT documented in this encounter Additional Health Concerns Infection Onset Date Last Indicated Resolved Time COVID-19 Rule Out 07/17/2020 07/17/2020 07/17/2020 11: 29 AM CDT documented as of this encounter Insurance Payer Benefit Plan / Subscriber ID Effective Dates Phone Addre ss Type Group MEDICARE MEDICARE PART [id number] 2002-Presap [phone] [address] Medicare A & B t 2 [id number] [place] [address] [facility] MEDICAID OF [id number] 2012-Candida [phone] [address] [place] [id number] [place] [address] documented as of this encounter Advance Directives Name Relationship Healthcare Agent Communication Relationship Zoya "Ailyn" Abran [facility] Health Care Agent [email or web address] [address] [phone] Agent (Mobile) [email or web address]
--- OUTSIDE RECORDS SUMMARY | 2020-08-15 06:30 | XMS REPORT | Summary of Care ---
:[address] [facility] - [facility] Address [address] [place] [address] Care Team Providers Name Role Phone Brian Martin MD Primary Care Provider Encounter Details Date Type Department Care Team Description 07/18/2020 Case Management [facility] Physical Brown, Annia ssa K, LOG CHAIN WORKER Therapy- [address] Professional Office [address] [place] [id number] [facility] [phone] Allergies Active Allergy Reactions Severity Noted Date Comments Amlodipine Other - See comments High 07/19/2017 Severe muscle pain Levofloxacin Nausea and/or High 08/05/2017 Vomiting Lisinopril Swelling 05/03/2017 Penicillins Other - See comments 10/08/2014 When re sofia IM Says feels like ic ewater in runni ng all over and fe els like passing ou t Does not recall getting any oth er way. Circpvb-Cql-Vmp Unknown - See 03/03/2018 Muscle pain Reductase Inhibitors comments documented as of this encounter (statuses as of 07/18/2020) Medications Medication Sig Dispensed Refills Start Date [...] as of this encounter (statuses as of 07/18/2020) Active Problems Problem Noted Date Slurred speech 11/28/2017 Stroke 11/27/2017 Dizziness 10/07/2017 At risk for seizures 05/10/2017 IVH (intraventricular hemorrhage) 05/03/2017 Acquired obstructive hydrocephalus 05/03/2017 SAH (subarachnoid hemorrhage) 05/03/2017 Essential hypertension 05/03/2017 Vertebral artery dissection documented as of this encounter (statuses as of 07/18/2020) Resolved Problems Problem Noted Date Resolved Date [...] as of this encounter (statuses as of 07/18/2020) Social History Tobacco Use Types Packs/Day Years [...] filedocumented in this encounter Progress Notes Katherine Dodd PTA - 07/18/2020 2:36 PM CDT2:35 PM Pt and daughter arrived for therapy. journalism intern reported that she took Mom to ER last night due to confusion and difficulty communicating. Advised patient and chronic care nurse to follow up with . Pt on hold pending Dr's orders. Katherine Dodd PTA [place] Lic#[id number] Supervised by: Lidya Pickard PT [facility] Dept. [phone] (phone) documented in this encounter Plan of Treatment Date Type Specialty Care Team Description 07/23/2020 Office Visit Neurology Rosendo Richardson MD [address] [place] [address]. [place], [place] [phone] 08/12/2020 Office Visit Internal Medicine Patti Martin MD [address] [place] [address] 775 15 Health Maintenance Due Date Last [...] Yes Miller, to be able to Vanesa G PT get her head up to be able to get her eyes check. documented as of this encounter Implants Implanted Type Area Machinist Set Up Device Shelf Model / Identifier Expiration Serial / Lot Date Bipolar Head, Hu Uhr Bipolar [id number] #Uh1-48-28 [Uh1-48-28] BIPOLAR Left: [place] 02/02/2022 UH1-48-28 / Implanted: Qty: 1 on 11/29/2017 by Reid Tim MD at [facility] head Hip 0 / [id number] Head, [place] V40 Cocr Lfit 28mm/0 #[id number] Femoral Left: [place] 07/20/2022 6260-9-128 / Implanted: Qty: 1 on 11/29/2017 by Reid Tim MD at [facility] Head Hip 0 / [id number] Stem, Hu Size 7 Accolade Ii 127deg #[id number] Femoral Left: Hu 08/10/2022 [id number] / Implanted: Qty: 1 on 11/29/2017 by Reid Tim MD at [facility] Stem Hip 0 / [id number] documented as of this encounter Results Not on filedocumented in this encounter Insurance Payer Benefit Plan / Subscriber ID Effective Dates Phone Addre ss Type Group MEDICARE MEDICARE PART [id number] 2002-Presen [phone] [address] Medicare A & B t 2 [id number] [place] [address] [facility] MEDICAID OF [id number] 2012-Presen [phone] [address] Medicaid [place] t 0 [id number] [place] [address] documented as of this encounter Advance Directives Name Relationship Healthcare Agent Communication Relationship Zoya "Ailyn" Abran [facility] Care Agent [email or web address] [facility] 97 [phone] Agent (Mobile) [email or web address]
--- OUTSIDE RECORDS SUMMARY | 2020-08-15 06:31 | XMS REPORT | Summary of Care ---
:1935 Author Organization [facility] - [facility] Address [address] [place], [place] [id number] Care Team Providers Name Role Phone Brian Martin MD Primary Care Provider Reason for Visit Reason Comments New Evaluation confusion Encounter Details Date Type Department Care Team Description 07/23/2020 Office Visit [facility] Rosendo Richardson TIA (transie nt ischemic attack) (Primary Dx); Neurology-Elpidio Jarrett MD Cerebrovascular disease; [address] PFO (paten t foramen ovale) Drive, [address] [facility] [place] [address] [phone] Allergies Active Allergy Reactions Severity Noted Date Comments Amlodipine Other - See comments High 07/19/2017 Severe muscle pain Levofloxacin Nausea and/or High 08/05/2017 Vomiting Lisinopril Swelling 05/03/2017 Penicillins Other - See comments 10/08/2014 When re cieives IM Says feels like ic ewater in runni ng all over and fe els like passing ou t Does not recall getting any oth er way. Pnxfoyo-Bqq-Rnq Unknown - See 03/03/2018 Muscle pain Reductase Inhibitors comments documented as of this encounter (statuses as of 07/24/2020) Medications Medication Sig Dispensed Refills Start Date [...] as of this encounter (statuses as of 07/24/2020) Active Problems Problem Noted Date Slurred speech 11/28/2017 Stroke 11/27/2017 Dizziness 10/07/2017 At risk for seizures 05/10/2017 IVH (intraventricular hemorrhage) 05/03/2017 Acquired obstructive hydrocephalus 05/03/2017 SAH (subarachnoid hemorrhage) 05/03/2017 Essential hypertension 05/03/2017 Vertebral artery dissection documented as of this encounter (statuses as of 07/24/2020) Resolved Problems Problem Noted Date Resolved Date [...] as of this encounter (statuses as of 07/24/2020) Social History Tobacco Use Types Packs/Day Years [...] Sign Reading Time Taken Comments Blood Pressure 141/66 07/23/2020 3:47 PM CDT Pulse 66 07/23/2020 3:47 PM CDT Temperature - - Respiratory Rate - - Oxygen Saturation 99% 07/23/2020 3:45 PM CDT Inhaled Oxygen Concentration - - Weight 59.4 kg (130 lb 14.4 oz) 07/23/2020 3:45 PM CDT Height - - Body Mass Index 19.9 06/03/2020 3:31 PM CDT documented in this encounter Progress Notes Rosendo Richardson MD - 07/23/2020 3:40 PM CDT HISTORY OF PRESENT ILLNESS: Renu Garcia is a 84 year old female. Chief complaint: recent spell, question if it was stroke. History: The patient had an episode recently were she went to the emergency room because she had been "doing things backwards" and she had awakened that morning that she had gone to the emergency room with the headache. There was no report of any new focal arm or leg weakness present. Patient pretty much uses the wheelchair all of the time because she is just unstable walking and is a fall risk. In the past she had been diagnosed with the PFO, and she has seen our local sap senior developer in reference to that issue. She has remained on dual antiplatelet therapy. The emergency room doctor apparently had expressed an opinion to the daughter of the patient that the patient might be starting to develop dementia and so the daughter of the patient did have questions about dementia. Radiology: Ct Head Wo Contrast Result Date: 07/17/2020 No acute intracranial hemorrhage or mass effect. Redemonstration of multifocal encephalomalacia/chronic infarcts as detailed above. Preliminary Report Dictated by Resident: Kajal Good I, Clay Grande MD., have reviewed this study and agree with the above report. PMH: has a past medical history of Glaucoma, Hydrocephalus (05/2017), Hypertension, Migraines, Stroke, and Vertebral artery dissection. Current Outpatient Medications: hydroCHLOROthiazide 25 mg tablet, Take 2 tablets by mouth every morning., Disp: 30 tablet, Rfl:0 Diclofenac Sodium 1 % gel, APPLY TO AFFECTED AREA(S) EVERY 8 (EIGHT) HOURS NEEDED FOR PAIN (SCALE 4-6)., Disp: 600 g, Rfl: 3 meloxicam 7.5 mg tablet, Take 1 tablet by mouth daily. If not helping may increase up to 2 daily., Disp: 60 tablet, Rfl: 3 clopidogreL 75 mg tablet, Take 1 tablet by mouth daily., Disp: 90 tablet, Rfl: 3 COQ10, UBIQUINOL, ORAL, 200 mg., Disp: , Rfl: D-MANNOSE ORAL, 1000mg w/cranberry 400mg, Disp: , Rfl: aspirin 81 mg chewable tablet, Take 1 tablet by mouth daily., Disp: 30 tablet, Rfl: 5 MAGNESIUM CITRATE ORAL, Take 1 capsule by mouth 2 (two) times daily., Disp: , Rfl: docusate 100 mg capsule, Take 100 mg by mouth daily., Disp: , Rfl: Family History Problem Relation Age of Onset Stroke Mother at 91 Coronary Heart Disease Father at 69 Cancer Father High cholesterol Father Heart Father Social History Socioeconomic History Marital status: Spouse name: Not on file Number of children: Not on file Years of education: Not on file Highest education level: Not on file Occupational History Occupation: retired Social Needs Financial resource strain: Not on file Food insecurity Worry: Not on file Inability: Not on file Transportation needs Medical: Not on file Non-medical: Not on file Tobacco Use Smoking status: Never Smoker Smokeless tobacco: Never Used Substance and Sexual Activity Alcohol use: No Drug use: No Sexual activity: Never Lifestyle Physical activity Days per week: Not on file Minutes per session: Not on file Stress: Not on file Relationships Social connections Talks on phone: Not on file Gets together: Not on file Attends shinto service: Not on file Active member of club or organization: Not on file Attends meetings of clubs or organizations: Not on file Relationship status: Not on file Intimate partner violence Fear of current or ex partner: Not on file Emotionally abused: Not on file Physically abused: Not on file Forced sexual activity: Not on file Other Topics Concern Not on file Social History Narrative She has a home but she's staying at her daughters while she's recuperating. She's retired. She was very active prior to her SAH. Vital signs: BP (!) 141/66 (BP Location: Right arm, Patient Position: Sitting, BP CUFF SIZE: Adult Medium) | Pulse 66 | Wt 130 lb 14.4 oz (59.4 kg) | SpO2 99% | BMI 19.90 kg/m General findings: the patient is alert and cooperative during the examination. Wasting of the intrinisic hand muscles, and otherwise no focal arm or leg weakness. Heel to butler is slow. Can't remain standing on her own. Patient did arrive in a wheelchair. Concerning the pupils, they are regular and postsurgical. Not a clear visual field defect either that could be mapped out. Also patient does not have color changes of the lower extremities. Reflexes are approximately one plus bilaterally and in addition and mild increase in tone generally is noted. ASSESSMENT AND RECOMMENDATIONS: ICD-10-CM ICD-9-CM 1. TIA (transient ischemic attack) G45.9 435.9 2. Cerebrovascular disease I67.9 437.9 3. PFO (patent foramen ovale) Q21.1 745.5 Impression: During the 25 minute office visit, 14 of those minutes had been spent discussing dementia and the various subtypes including Alzheimer's disease and vascular dementia. I explained that patients with vascular dementia tend to have a stepwise decrease in overall function. Emergency room did order CT scan of the brain, and she does have atrophy, and also evidence of small vessel disease but I thought she had an infarct more in the distribution of the left posterior cerebral artery in the parietal occipital area of, one probably up in the right frontal cortical area and I think another one in the cerebellar hemisphere also on the right side. She had in the past questions of atheroscleroticchanges of the posterior circulation and so she wanted to find out if there might be a stenting option for the posterior circulation. 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 I can ask our our vascular interventionalists if a stenting procedure on the left might be a good option. It sounds like she probably had a TIA in the emergency room, she has had evidence of other vascular events on CT scan. Right now she is on dual antiplatelet therapy and does have the probable PFO. Creation of the note was aided by utilizing a cut/paste operation of text from a Microsoft Word template created with [employer]. The text was dictated into the template via Dragon Naturally Speaking. documented in this encounter Plan of Treatment Date Type Specialty Care Team Description 08/19/2020 Office Visit Internal Medicine Patti Martin MD [address] [address] 15 Health Maintenance Due Date Last Done [...] of this encounter Implants Implanted Type Area Assisted Living Assistant Device Shelf Model / Identifier Expiration Serial / Lot Date Bipolar Head, [place] Uhr Bipolar [id number] #Uh1-48-28 [Uh1-48-28] BIPOLAR Left: [place] 02/02/2022 UH1-48-28 / Implanted: Qty: 1 on 11/29/2017 by Reid Tim MD at [facility] head Hip 0 / [id number] Head, [place] V40 Cocr Lfit 28mm/0 #6260-9-128 Femoral Left: Hu 07/20/2022 6260-9-128 / Implanted: Qty: 1 on 11/29/2017 by Reid Tim MD at [facility] Head Hip 0 / [id number] Stem, Hu Size 7 Accolade Ii 127deg #[id number] Femoral Left: Hu 08/10/2022 [id number] / Implanted: Qty: 1 on 11/29/2017 by Reid Tim MD at [facility] Stem Hip 0 / [id number] documented as of this encounter Results Not on filedocumented in this encounter Visit Diagnoses Diagnosis TIA (transient ischemic attack) - Primar y Unspecified transient cerebral ischemia Cerebrovascular disease Cerebrovascular disease, unspecified PFO (patent foramen ovale) 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 Medicare A & B t 2 [id number] [place] [phone] [facility] MEDICAID OF [id number] 2012-Presen [id number] [address] Medicaid [place] t 0 [id number] [place] [address] documented as of this encounter Advance Directives Name Relationship Healthcare Agent Communication Relationship Zoya "Ailyn" Abran [facility] Health Care Agent [email or web address] [place] [address] [place] [phone] Agent (Mobile) [email or web address]
--- OUTSIDE RECORDS SUMMARY | 2020-08-15 06:31 | XMS REPORT | Summary of Care ---
:1935 Author Organization [facility] - [facility] Address [address] [place], [place] [address] Care Team Providers Name Role Phone Brian Martin MD Primary Care Provider Reason for Visit Reason Comments New Evaluation confusion Encounter Details Date Type Department Care Team Description 07/23/2020 Office Visit [facility] Rosendo Richardson TIA (transie nt ischemic attack) (Primary Dx); Neurology-Elpidio Jarrett MD Cerebrovascular disease; [address] PFO (paten t foramen ovale) Drive, [address] [facility] [place] [phone] Allergies Active Allergy Reactions Severity Noted Date Comments Amlodipine Other - See comments High 07/19/2017 Severe muscle pain Levofloxacin Nausea and/or High 08/05/2017 Vomiting Lisinopril Swelling 05/03/2017 Penicillins Other - See comments 10/08/2014 When re cieives IM Says feels like ic ewater in runni ng all over and fe els like passing ou t Does not recall getting any oth er way. Azxiyul-Wvl-Uyo Unknown - See 03/03/2018 Muscle pain Reductase [...] PFO, and she has seen our local typist in reference to that issue. She has [...] file Gets together: Not on file Attends nondenominational service: Not on file Active member of [...] from a Microsoft Word template created with [employer]. The text was dictated into the template via Dragon Naturally Speaking. documented in this encounter Plan of Treatment Date Type Specialty Care Team Description 08/19/2020 Office Visit Internal Medicine Patti Martin MD [address] [address] 15 Health Maintenance Due Date Last Done [...] General Yes Miller, to be able to Vansea Lopez PT get her head up to be able to get her eyes check. documented as of this encounter Implants Implanted Type Area Jtac Device Shelf Model / Identifier Expiration Serial / Lot Date Bipolar Head, [place] Uhr Bipolar [id number] #Uh1-48-28 [Uh1-48-28] BIPOLAR Left: [place] 02/02/2022 UH1-48-28 / Implanted: Qty: 1 on 11/29/2017 by Reid Tim MD at [facility] head Hip 0 / [id number] Head, [place] V40 Cocr Lfit 28mm/0 #6260-9-128 Femoral Left: Hu 07/20/2022 6260-9-128 / Implanted: Qty: 1 on 11/29/2017 by Reid Tim MD at [facility] Head Hip 0 / [id number] Stem, Hu Size 7 Accolade Ii 127deg #[id number] Femoral Left: Hu 08/10/2022 [id number] / Implanted: Qty: 1 on 11/29/2017 by Reid Tim MD at [facility] Stem Hip 0 / [id number] documented as of this encounter Results Not on filedocumented in this encounter Visit Diagnoses Diagnosis TIA (transient ischemic attack) - Primar y Unspecified transient cerebral ischemia Cerebrovascular disease Cerebrovascular disease, unspecified PFO (patent foramen ovale) 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 Medicare A & B t 2 [id number] [place] [phone] [facility] MEDICAID OF [id number] 2012-Presen [id number] [address] Medicaid [place] t 0 [id number] [place] [address] documented as of this encounter Advance Directives Name Relationship Healthcare Agent Communication Relationship Zoya "Ailyn" Abran [facility] Health Care Agent [email or web address] [place] [address] [address] [phone] Agent (Mobile) [email or web address]
[2020-08-15] MEDS ORDERED: Ringers Lactate 1,000 ML IV ONE (07:00)
[2020-08-15] MEDS: MOXIFLOXACIN HCL 0.5% 3ML OPTH OPTH ONE ×3 (07:12→07:26)
[2020-08-15] MEDS: KETOROLAC OPTHALMIC 5 ML BOT ONE ×3 (07:12→07:26)
[2020-08-15] MEDS ORDERED: dexAMETHasone 4 MG/ML VIAL ONE (07:16)
[2020-08-15] MEDS ORDERED: ONDANSETRON 4 MG/2 ML VIAL ONE (07:16)
[2020-08-15] MEDS ORDERED: propofoL 200 MG/20 ML VIAL IV ONE (07:16)
[2020-08-15] MEDS ORDERED: LIDOCAINE 1% MPF 5 ML VIAL ONE (07:16)
[2020-08-15] MEDS ORDERED: FENTANYL CITR 100 MCG/2 ML ONE (07:16)
[2020-08-15] MEDS ORDERED: KETOROLAC 30 MG/ML INJ ONE (07:16)
[2020-08-15] MEDS ORDERED: BSS OPTHALMIC SOL 15 ML BOT OPTH ONE (07:30)
[2020-08-15] MEDS ORDERED: TOBRADEX 0.3-0.1% OPTH OINTMENT ONE (07:30)
[2020-08-15] MEDS ORDERED: POVIDONE-IODINE 5% EYE DROPS ONE (07:30)
[2020-08-15] MEDS ORDERED: BALANCED SALT IRRIG PLAIN 500 ML BTL IRR ONE (07:36)
[2020-08-15] MEDS ORDERED: NA CHLORIDE 0.9% 0 ML IV ONE (08:25)
[2020-08-15] MEDS ORDERED: NS 0.9% VIAL 10 ML ONE (08:35)
[2020-08-15] MEDS ORDERED: Phenylephrine HCl 10 MG/ML 1 ML VIAL ONE (08:35)
[2020-08-15] MEDS ORDERED: EPHEDRINE SULF 50 MG/ML VIAL ONE (08:36)
[2020-08-15] MEDS ORDERED: LIDOCAINE 1% MPF 30 ML VIAL ONE (08:49)
[2020-08-15] MEDS ORDERED: LIDOCAINE 1% W/EPI 1:100,000 MDV 20 ML VIAL ONE (08:49)
[2020-08-15] MEDS ORDERED: GLYCOPYRROLATE 0.2 MG/ML SYR ONE (09:05)
--- NOTE | 2020-08-15 11:10 | OP ---
Date of Procedure: 08/15/2020 Surgeon: Derek Leon MD Color Control Supervisor: None. Preoperative Diagnosis: Glaucoma, left eye. Postoperative Diagnosis: Glaucoma, left eye. Procedure Performed: Trabeculectomy with placement of Ex-Press shunt, left eye. Description Of Procedure: After being properly identified in the preoperative holding area, the aniya ent was taken back to the operating room where a time-out was performed. The patient was then placed under general anesthesia and prepped and draped in the normal sterile fashion. Examination undernea th the operating microscope before the procedure began revealed an extremely deep set orbit as well a s displaced and slightly irregular pupil. Because of the orbit and small fornices, decision to place a bridle suture was made. Bridle suture was originally placed at the 6 o'clock position; however, t his did not adequate exposure, so it was relocated to the superior position at 12 o'clock. Of signif icant note, the initial bridle suture cheese wired through several times alerting me to the possibili ty that this patient's tissues may be friable and weak and thus not able to fully support the Ex-Pres s shunt; however, this ended up not being the case; however, because of the cheese wire and the locat ion of that failed bridle suture, I did relocate our planned operative site from straight superior to superior nasal. A bridle suture was able to be placed using a fxhmcb-hx-oczbp configuration and the n drawn down in order to provide adequate exposure. Lidocaine with epinephrine was injected subconju nctival in order to create a bleb and then the conjunctiva dissected back using a Rhina scissors. A very light cautery was performed in order to achieve hemostasis. Using a crescent blade, the epis clera was cleaned. Using a caliper set to 3.5 mm, a square box was marked out and then using a Super Sharp scalpel, the initial outlined and the incisions were made. The scleral flap was finished usin g a crescent blade going slightly less thick than my normal thickness in order to provide a thicker b ase in order to accommodate the shot. Once the surgical limbus was visualized, a 27-gauge needle was used to pass parallel to the iris into the anterior chamber, which resulted in a small gush of fluid . The Ex-Press shunt model P-50 was then opened, serial #[id number] and placed through the incision tr act that had been made. This was then released and seated into position and injecting the anterior c hamber with intra-ocular BSS. A small trickle fluid was noted using a Leksell from the device. The flap was then closed using a 10-0 Prolene suture anchored at each corner and then the conjunctiva delta sed as well. There was some difficulty closing the conjunctiva as the tenon had swelled, but we were able to close it and achieve a watertight seal and again when the intra-ocular BSS was injected, the bleb was seen to rise without leak. The procedure was therefore concluded and the patient taken to the postoperative holding area in stable condition having tolerated the procedure well. She was pres sure patched over TobraDex ointment and she is to follow up with myself, Dr. Derek Leon at the [facility] tomorrow morning. No complications, no specimen sent, and implants as above. MARGRAET/MJL Voice ID: [id number] Report ID: [id number]
[2020-08-15 11:34] VITALS: BP 136/58; TEMP 97.7; O2SAT 98
== END 2020-08-15 10:50 | disposition home or self-care (01) ==
LOC: OR 06:16
PROVIDERS: ATTEND Ophthalmology
PROC: 08133J4 Bypass Left Anterior Chamber to Sclera with Synthetic Substitute, Percutaneous Approach (ICD-10-PCS; 2020-08-15)
PROC: 08133Z4 Bypass Left Anterior Chamber to Sclera, Percutaneous Approach (ICD-10-PCS; principal; 2020-08-15 07:30)
DX: H40.9 Unspecified glaucoma (principal); Z20.828 Contact with and (suspected) exposure to other viral communicable diseases
CPT/HCPCS: 66170; 66183; U0002; J2704; J1100; J2370; J3010; J7120; J2405

== ENCOUNTER 2020-09-26 06:27 | Day surgery (SDC) | payer OTHER ==
--- OUTSIDE RECORDS SUMMARY | 2020-09-26 06:30 | XMS REPORT | Continuity of Care Document ---
:1935 Author Organization [facility] t Address [address] [place] [address] Care Team Providers Name Role Phone Kolby [...] ID 2020-07-23 2020-07-23 Office TONY Richardson [id number] 15:35:12 16:15:28 Visit Rosendo Magallanes [id number] Lewis [id number] Estela [id number] nal 092 Building Results This patient has no known results.
--- OUTSIDE RECORDS SUMMARY | 2020-09-26 06:30 | XMS REPORT | Summary of Care ---
:1935 Author Organization [facility] Address [address] [place] [address] Care Team Providers Name Role Phone Brian Martin MD Primary Care Provider Reason for Visit Reason Comments Follow-up (Routine) Status Reason Specialty Diagnoses / Referred By Referred To Procedures Contact Contact Authorized Physical Therapy Diagnoses Neck pain, chronic Upper back pain, chronic Martin, Procedures CONSULT/REFERRAL PHYSICAL THERAPY OR PHYSICAL THERAPY EVALUATION LOW COMPLEX 20 MINS OR PHYSICAL THERAPY EVALUATION MOD COMPLEX 30 MINS OR PHYSICAL THERAPY EVALUATION HIGH COMPLEX 45 MINS OR THERAPEUTIC EXERCISES Sanjana Torres MD OR NEUROMUSC REE DUCAT,1+ AREAS, EA 15 MIN OR MANUAL THER TECH,1+REGIONS,EA 15 MIN OR THERAPEUT ACTVITY DIRECT PT CONTACT EACH 15 MIN OR SELF-CARE/HOME MGMT TRAINING EACH 15 MINUTES [address] [facility] [address] [place] [address] Encounter Details Date Type Department Care Team Description 07/05/2020 Ancillary Visit [facility] Ryley Salinas MD [address] [facility] [place] [address] Chronic neck pain (Primary Dx); Physical Therapy- Katherine Dodd, [employer] [address] [place] [address] Chronic upper back pain; [place] Limited joint range of motio n; Professional Office Muscle w eakness (generalized); Building Impaired functional mobility and activity tolerance [address] Elise [address] [place] [phone] Allergies Active Allergy Reactions Severity Noted Date Comments Amlodipine Other - See comments High 07/19/2017 Severe muscle pain Levofloxacin Nausea and/or High 08/05/2017 Vomiting Lisinopril Swelling 05/03/2017 Penicillins Other - See comments 10/08/2014 When re cirao IM Says feels like ic ewater in runni ng all over and fe els like passing ou t Does not recall getting any oth er way. Jawoxun-Qvt-Twn Unknown - See 03/03/2018 Muscle pain Reductase [...] in this encounter Progress Notes Katherine Dodd, [employer] - 07/05/2020 2:20 PM CDT Physical Therapy [...] add/advance exercises as able. Katherine Dodd PTA [place] Lic#[id number] Supervised by: Lidya Pickard PT [facility] Rehabilitation Services Dept. [phone] (phone) documented in this encounter Plan of Treatment Date Type Specialty Care Team Description 07/09/2020 Ancillary Visit Physical Therapy Lidya Anguiano, PT [address] [place] [address] 08/12/2020 Office Visit Internal Medicine Patti Martin MD [address] [place] [address] 775 15 [phone] Health Maintenance Due Date Last Done Comments [...] of this encounter Implants Implanted Type Area Manager Of Engineering Device Shelf Model / Identifier Expiration Serial / Lot Date Bipolar Head, [place] Uhr Bipolar [id number] #Uh1-48-28 [Uh1-48-28] BIPOLAR Left: [place] 02/02/2022 UH1-48-28 / Implanted: Qty: 1 on 11/29/2017 by Reid Tim MD at [facility] head Hip 0 / [id number] Head, Hu V40 Cocr Lfit 28mm/0 #6260-9-128 Femoral Left: Hu 07/20/2022 6260-9-128 / Implanted: Qty: 1 on 11/29/2017 by Reid Tim MD at [facility] Head Hip 0 / [id number] Stem, Hu Size 7 Accolade Ii 127deg #[id number] Femoral Left: [place] 08/10/2022 [id number] / Implanted: Qty: 1 on 11/29/2017 by Reid Tim MD at [facility] Stem Hip 0 / [id number] documented as of this encounter Results Not [...] Addre ss Type Group MEDICARE MEDICARE PART [id number] 2002-Candida [phone] Medicare A & B t 2 [id number] [place] [address] [facility] MEDICAID OF [id number] 2012-Candida [phone] [address] Medicaid [place] t 0 [id number] [place] [address] documented as of this encounter Advance Directives Name Relationship Healthcare Agent Communication Relationship Zoya "Lois Osullivan Child Health Care Agent [email or web address] Ty Haines [place] [address] [phone] Agent (Mobile) [email or web address]
--- OUTSIDE RECORDS SUMMARY | 2020-09-26 06:30 | XMS REPORT | Summary of Care ---
:1935 Author Organization [facility] Address [address] [place] [id number] Care Team Providers Name Role Phone Brian Martin MD Primary Care Provider Reason for Visit Reason Comments Follow-up (Routine) Status Reason Specialty Diagnoses / Referred By Referred To Procedures Contact Contact Authorized Physical Therapy Diagnoses Neck pain, chronic Upper back pain, chronic Martin, Procedures CONSULT/REFERRAL PHYSICAL THERAPY [place] PHYSICAL THERAPY EVALUATION LOW COMPLEX 20 MINS MN PHYSICAL THERAPY EVALUATION MOD COMPLEX 30 MINS MN PHYSICAL THERAPY EVALUATION HIGH COMPLEX 45 MINS MN THERAPEUTIC EXERCISES Sanjana Torres MD [place] NEUROMUSC REE DUCAT,1+ AREAS, EA 15 MIN [place] MANUAL THER TECH,1+REGIONS,EA 15 MIN [place] THERAPEUT ACTVITY DIRECT PT CONTACT EACH 15 MIN [place] SELF-CARE/HOME MGMT TRAINING EACH [address] [place] [address] Dr Manley [address] [place] [address] Encounter Details Date Type Department Care Team Description 07/09/2020 Ancillary Visit [facility] Farideh Martin MD [address] [place] [address] Dr [address] [place] [address] Chronic neck pain (Primary Dx); Physical Therapy- Lidya Anguiano, PT [address] [place] [address] Chronic upper back pain; [place] Limited joint range of motio n; Professional Office Muscle w eakness (generalized); Building Impaired functional mobility and activity tolerance [address] [place] [address] Dr. Elise [address] [place] [phone] Allergies Active Allergy Reactions Severity Noted Date Comments Amlodipine Other - See comments High 07/19/2017 Severe muscle pain Levofloxacin Nausea and/or High 08/05/2017 Vomiting Lisinopril Swelling 05/03/2017 Penicillins Other - See comments 10/08/2014 When re cirao IM Says feels like ic ewater in runni ng all over and fe els like passing ou t Does not recall getting any oth er way. Klxmctk-Erm-Iks Unknown - See 03/03/2018 Muscle pain Reductase [...] mobility. Lidya Pickard, PT [place] PT License [id number] [facility] Rehabilitation Services Department (phone) (fax) documented in this encounter Plan of Treatment Date Type Specialty Care Team Description 07/11/2020 Ancillary Visit Physical Therapy Kaye Martin MD [address] [place] [address] [phone] Katherine Dodd, [address] [address] 07/16/2020 Ancillary Visit Physical Therapy Kaye Martin MD [address] [place] [address] [phone] Katherine Dodd, [address] [address] 07/18/2020 Ancillary Visit Physical Therapy Kaye Martin MD [address] [place] [address] [address] [phone] Katherine Dodd, [address] [address] 08/12/2020 Office Visit Internal Medicine Patti Martin MD [address] [place] [address] 77 15 [phone] Health Maintenance Due Date Last Done Comments [...] of this encounter Implants Implanted Type Area Shook Machine Operator Device Shelf Model / Identifier Expiration Serial / Lot Date Bipolar Head, Hu Uhr Bipolar [id number] #Uh1-48-28 [Uh1-48-28] BIPOLAR Left: [place] 02/02/2022 UH1-48-28 / Implanted: Qty: 1 on 11/29/2017 by Reid Tim MD at [facility] head Hip 0 / [id number] Head, Hu V40 Cocr Lfit 28mm/0 #6260-9-128 Femoral Left: Hu 07/20/2022 6260-9-128 / Implanted: Qty: 1 on 11/29/2017 by Reid Tim MD at [facility] Head Hip 0 / [id number] Stem, [place] Size 7 Accolade Ii 127deg #[id number] Femoral Left: Hu 08/10/2022 [id number] / Implanted: Qty: 1 on 11/29/2017 by Reid Tim MD at [facility] Stem Hip 0 / [id number] documented as of this encounter Results Not [...] Addre ss Type Group MEDICARE MEDICARE PART [id number] 2002-Presen [phone] [address] Medicare A & B t 2 [id number] [place] [address] [facility] MEDICAID OF [id number] 2012-Presen [phone] [address] Medicaid [place] t 0 [id number] [place] [address] documented as of this encounter Advance Directives Name Relationship Healthcare Agent Communication Relationship Zoya "Lois Osullivan [facility] Health Care Agent [email or web address] et Grzegorz Haines [facility] Agent (Mobile) [email or web address]
--- OUTSIDE RECORDS SUMMARY | 2020-09-26 06:30 | XMS REPORT | Summary of Care ---
:1935 Author Organization [facility] Address [address] [place] [id number] Care Team Providers Name Role Phone Brian Martin MD Primary Care Provider Reason for Visit Reason Comments Follow-up (Routine) Status Reason Specialty Diagnoses / Referred By Referred To Procedures Contact Contact Authorized Physical Therapy Diagnoses Neck pain, chronic Upper back pain, chronic Martin, Procedures CONSULT/REFERRAL PHYSICAL THERAPY [place] PHYSICAL THERAPY EVALUATION LOW COMPLEX 20 MINS [place] PHYSICAL THERAPY EVALUATION MOD COMPLEX 30 MINS [place] PHYSICAL THERAPY EVALUATION HIGH COMPLEX 45 MINS [place] THERAPEUTIC EXERCISES Sanjana Torres MD [place] NEUROMUSC REE DUCAT,1+ AREAS, EA 15 MIN [place] MANUAL THER TECH,1+REGIONS,EA 15 MIN [place] THERAPEUT ACTVITY DIRECT PT CONTACT EACH 15 MIN [place] SELF-CARE/HOME MGMT TRAINING EACH [address] [place] [address] Dr Manley [address] [place] [address] Encounter Details Date Type Department Care Team Description 07/11/2020 Ancillary Visit [facility] Farideh Martin MD [address] [place] [address] Dr Manley [address] [place] [address] Chronic neck pain (Primary Dx); Physical Therapy- Vanesa Miller, PT [address] [place] [address] Chronic upper back pain; [place] Limited joint range of motio n; Professional Office Muscle w eakness (generalized); Building Impaired functional mobility and activity tolerance [address] [place] [phone] Allergies Active Allergy Reactions Severity Noted Date Comments Amlodipine Other - See comments High 07/19/2017 Severe muscle pain Levofloxacin Nausea and/or High 08/05/2017 Vomiting Lisinopril Swelling 05/03/2017 Penicillins Other - See comments 10/08/2014 When re cirao IM Says feels like ic ewater in runni ng all over and fe els like passing ou t Does not recall getting any oth er way. Gitfmal-Tbs-Gzx Unknown - See 03/03/2018 Muscle pain Reductase [...] increasing overall mobility. Vanesa Miller,PT [place] License: [id number] documented in this encounter Plan of Treatment Date Type Specialty Care Team Description 07/16/2020 Ancillary Visit Physical Therapy Kaye Martin MD [address] [place] [address] [address] [phone] Katherine Dodd, [address] [address] 07/18/2020 Ancillary Visit Physical Therapy Kaye Martin MD [address] [place] [address] [address] Katherine Dodd, [address] [address] 08/12/2020 Office Visit Internal Medicine Patti Martin MD [address] [place] [address]75 15 [phone] Health Maintenance Due Date Last Done Comments [...] this encounter Implants Implanted Type Area Manager Regional Device Shelf Model / Identifier Expiration Serial / Lot Date Bipolar Head, Hu Uhr Bipolar [id number] #Uh1-48-28 [Uh1-48-28] BIPOLAR Left: Hu 02/02/2022 UH1-48-28 / Implanted: Qty: 1 on 11/29/2017 by Reid Tim MD at [facility] head Hip 0 / [id number] Head, Hu V40 Cocr Lfit 28mm/0 #6260-9-128 Femoral Left: [place] 07/20/2022 6260-9-128 / Implanted: Qty: 1 on 11/29/2017 by Reid Tim MD at [facility] Head Hip 0 / [id number] Stem, Hu Size 7 Accolade Ii 127deg #[id number] Femoral Left: [place] 08/10/2022 [id number] / Implanted: Qty: 1 on 11/29/2017 by Reid Tim MD at [facility] Stem Hip 0 / [id number] documented as of this encounter Results Not [...] Addre ss Type Group MEDICARE MEDICARE PART [id number] 2002-Presap [phone] [address] Medicare A & B t 2 [id number] [place] [address] [facility] MEDICAID OF [id number] 2012-Presap [phone] [address] Medicaid [place] t 0 [id number] [place] [address] documented as of this encounter Advance Directives Name Relationship Healthcare Agent Communication Relationship Zoya "Ailyn" Abran [facility] Care Agent [email or web address] – [email or web address] et Grzegorz Haines [facility] Agent (Mobile) [email or web address]
--- OUTSIDE RECORDS SUMMARY | 2020-09-26 06:30 | XMS REPORT | Summary of Care ---
:1935 Author Organization [facility] Address [address] [place] [address] Care Team Providers Name Role Phone Brian Martin MD Primary Care Provider Reason for Visit Reason Comments Follow-up (Routine) Status Reason Specialty Diagnoses / Referred By Referred To Procedures Contact Contact Authorized Physical Therapy Diagnoses Neck pain, chronic Upper back pain, chronic Martin, Procedures CONSULT/REFERRAL PHYSICAL THERAPY CT PHYSICAL THERAPY EVALUATION LOW COMPLEX [address] PHYSICAL THERAPY EVALUATION MOD COMPLEX [address] PHYSICAL THERAPY EVALUATION HIGH COMPLEX [address] THERAPEUTIC EXERCISES Sanjana Torres MD CT NEUROMUSC REE DUCAT,1+ AREAS, EA [address] MANUAL THER TECH,1+REGIONS,EA [address] THERAPEUT ACTVITY DIRECT PT CONTACT EACH [address] SELF-CARE/HOME MGMT TRAINING EACH 15 MINUTES [address] [facility] [address] [place] [address] Encounter Details Date Type Department Care Team Description 07/03/2020 Ancillary Visit [facility] Ryley Salinas MD [address] [facility] [place] [address] Chronic neck pain (Primary Dx); Physical Therapy- Katherine Dodd, PSYCHIATRIC SPECIALIST [address] [place] [address] Chronic upper back pain; [place] Limited joint range of motio n; Professional Office Muscle w eakness (generalized); Building Impaired functional mobility and activity tolerance [address] [place] [phone] Allergies Active Allergy Reactions Severity Noted Date Comments Amlodipine Other - See comments High 07/19/2017 Severe muscle pain Levofloxacin Nausea and/or High 08/05/2017 Vomiting Lisinopril Swelling 05/03/2017 Penicillins Other - See comments 10/08/2014 When re cirao IM Says feels like ic ewater in runni ng all over and fe els like passing ou t Does not recall getting any oth er way. Ihnwuio-Nne-Wcz Unknown - See 03/03/2018 Muscle pain Reductase [...] in this encounter Progress Notes Katherine Dodd, PSYCHIATRIC SPECIALIST - 07/03/2020 2:20 PM CDT Physical Therapy [...] Assessment: Pt was able to sit on zoie for a longer period of time today. She continues to require verbal, visual and tactile cues for stretches and exercises. Pt tolerated treatment fair. Plan: Continue with POC 2 x 8 to decrease pain, increase cervical ROM and improve functional mobility. Will add/advance exercises as able. Katherine Dodd PTA [place] Lic#[id number] Supervised by: Lidya Pickard PT [facility] Rehabilitation Services Dept. [phone] (phone) documented in this encounter Plan of Treatment Date Type Specialty Care Team Description 07/05/2020 Ancillary Visit Physical Therapy Ryley Salinas MD [address] [place] [phone] Katherine Dodd PSYCHIATRIC SPECIALIST [address] [place] [address] 08/12/2020 Office Visit Internal Medicine Patti Martin MD [address] [facility] [address] [place], [place] [address] [phone] Health Maintenance Due Date Last Done Comments [...] of this encounter Implants Implanted Type Area Private Security Guard Device Shelf Model / Identifier Expiration Serial / Lot Date Bipolar Head, Hu Uhr Bipolar [id number] #Uh1-48-28 [Uh1-48-28] BIPOLAR Left: [place] 02/02/2022 UH1-48-28 / Implanted: Qty: 1 on 11/29/2017 by Reid Tim MD at [facility] head Hip 0 / [id number] Head, [place] V40 Cocr Lfit 28mm/0 #6260-9-128 Femoral Left: Hu 07/20/2022 6260-9-128 / Implanted: Qty: 1 on 11/29/2017 by Reid Tim MD at [facility] Head Hip 0 / [id number] Stem, Hu Size 7 Accolade Ii 127deg #9123-8256 Femoral Left: [place] 08/10/2022 8733-0862 / Implanted: Qty: 1 on 11/29/2017 by Reid Tim MD at [facility] Stem Hip 0 / [id number] documented as of this encounter Results Not [...] Addre ss Type Group MEDICARE MEDICARE PART [id number] 2002-Cand[place] [phone] [address] Medicare A & B t 2 [id number] [place] [address] [facility] MEDICAID OF [id number] 2012-Candida [phone] [address] Medicaid [place] t 0 [id number] [place] [address] documented as of this encounter Advance Directives Name Relationship Healthcare Agent Communication Relationship Zoya Osullivan (Susie) [facility] Care Agent [email or web address], [email or web address] et Grzegorz Haines [place] [phone] Agent (Mobile) [email or web address]
--- OUTSIDE RECORDS SUMMARY | 2020-09-26 06:31 | XMS REPORT | Summary of Care ---
:1935 Author Organization [facility] Address [address] [place], [place] [id number] Care Team Providers Name Role Phone Brian Martin MD Primary Care Provider Reason for Visit Reason Comments New Evaluation confusion Encounter Details Date Type Department Care Team Description 07/23/2020 Office Visit [facility] Rosendo Richardson TIA (transie nt ischemic attack) (Primary Dx); Neurology-Elpidio Jarrett MD Cerebrovascular disease; [address] PFO (paten t foramen ovale) Drive, [address] [facility] [place] [phone] Allergies Active Allergy Reactions Severity Noted Date Comments Amlodipine Other - See comments High 07/19/2017 Severe muscle pain Levofloxacin Nausea and/or High 08/05/2017 Vomiting Lisinopril Swelling 05/03/2017 Penicillins Other - See comments 10/08/2014 When re cieives IM Says feels like ic ewater in runni ng all over and fe els like passing ou t Does not recall getting any oth er way. Orawevz-Mew-Yvv Unknown - See 03/03/2018 Muscle pain Reductase [...] PFO, and she has seen our local consumer loan specialist in reference to that issue. She has [...] file Gets together: Not on file Attends mandaeism service: Not on file Active member of [...] from a Microsoft Word template created with [employer]. The text was dictated into the template via Dragon Naturally Speaking. documented in this encounter Plan of Treatment Date Type Specialty Care Team Description 08/19/2020 Office Visit Internal Medicine Patti Martin MD [address] [place] [address] Health Maintenance Due Date Last Done [...] encounter Implants Implanted Type Area Manager Of Regulatory Affairs Device Shelf Model / Identifier Expiration Serial / Lot Date Bipolar Head, [place] Uhr Bipolar [id number] #Uh1-48-28 [Uh1-48-28] BIPOLAR Left: [place] 02/02/2022 UH1-48-28 / Implanted: Qty: 1 on 11/29/2017 by Reid Tim MD at [facility] head Hip 0 / [id number] Head, [place] V40 Cocr Lfit 28mm/0 #6260-9-128 Femoral Left: Hu 07/20/2022 6260-9-128 / Implanted: Qty: 1 on 11/29/2017 by Reid Tim MD at [facility] Head Hip 0 / [id number] Stem, Hu Size 7 Accolade Ii 127deg #1572-7743 Femoral Left: Hu 08/10/2022 [id number] / Implanted: Qty: 1 on 11/29/2017 by Reid Tim MD at [facility] Stem Hip 0 / [id number] documented as of this encounter Results Not on filedocumented in this encounter Visit Diagnoses Diagnosis TIA (transient ischemic attack) - Primar y Unspecified transient cerebral ischemia Cerebrovascular disease Cerebrovascular disease, unspecified PFO (patent foramen ovale) Ostium secundum type atrial septal defec t documented in this encounter Insurance Payer Benefit Plan / Subscriber ID Effective Dates Phone Addre ss Type Group MEDICARE MEDICARE PART [id number] 2002-Presen [phone] [address] Medicare A & B t 2 [id number] [place] [phone] [facility] MEDICAID OF [id number] 2012-Presen [phone] [address] Medicaid [place] t 0 [id number] [place] [address] documented as of this encounter Advance Directives Name Relationship Healthcare Agent Communication Relationship Zoya "Ailyn" Abran [facility] Health Care Agent [email or web address] Ty Haines [place] [address] [phone] Agent (Mobile) [email or web address]
--- OUTSIDE RECORDS SUMMARY | 2020-09-26 06:31 | XMS REPORT | Summary of Care ---
:1935 Author Organization [facility] Address [address] [place] [address] Care Team Providers Name Role Phone Brian Martin MD Primary Care Provider Encounter Details Date Type Department Care Team Description 07/18/2020 Case Management [facility] Physical Brown, Annia ssa K, AIR MARSHAL Therapy- [address] Professional Office [address] [place] [address] [facility] [phone] Allergies Active Allergy Reactions Severity Noted Date Comments Amlodipine Other - See comments High 07/19/2017 Severe muscle pain Levofloxacin Nausea and/or High 08/05/2017 Vomiting Lisinopril Swelling 05/03/2017 Penicillins Other - See comments 10/08/2014 When re sofia IM Says feels like ic ewater in runni ng all over and fe els like passing ou t Does not recall getting any oth er way. Edniknw-Xuq-Vmr Unknown - See 03/03/2018 Muscle pain Reductase [...] PM Pt and daughter arrived for therapy. radio journalist reported that she took Mom to ER last night due to confusion and difficulty communicating. Advised patient and child care associate to follow up with . Pt on hold pending Dr's orders. Katherine Dodd PTA [place] Lic#[id number] Supervised by: Lidya Pickard PT [facility] Rehabilitation Services Dept. [phone] (phone) documented in this encounter Plan of Treatment Date Type Specialty Care Team Description 07/23/2020 Office Visit Neurology Rosendo Richardson MD [address] [place] [address]. [place], [place] [phone] 08/12/2020 Office Visit Internal Medicine Patti Martin MD [address] [place] [address] Health Maintenance Due Date Last [...] of this encounter Implants Implanted Type Area Personal Banking Representative Device Shelf Model / Identifier Expiration Serial / Lot Date Bipolar Head, Hu Uhr Bipolar [id number] #Uh1-48-28 [Uh1-48-28] BIPOLAR Left: [place] 02/02/2022 UH1-48-28 / Implanted: Qty: 1 on 11/29/2017 by Reid Tim MD at [facility] head Hip 0 / [id number] Head, [place] V40 Cocr Lfit 28mm/0 #6260-9-128 Femoral Left: [place] 07/20/2022 6260-9-128 / Implanted: Qty: 1 on 11/29/2017 by Reid Tim MD at [facility] Head Hip 0 / [id number] Stem, Hu Size 7 Accolade Ii 127deg #3247-4710 Femoral Left: Hu 08/10/2022 7906-1538 / Implanted: Qty: 1 on 11/29/2017 by Reid Tim MD at [facility] Stem Hip 0 / [id number] documented as of this encounter Results Not on filedocumented in this encounter Insurance Payer Benefit Plan / Subscriber ID Effective Dates Phone Addre ss Type Group MEDICARE MEDICARE PART [id number] 2002-Presen [phone] [address] Medicare A & B t 2 [id number] [place] [address] [facility] MEDICAID OF [id number] 2012-Presen [phone] [address] Medicaid [place] t 0 [id number] [place] [address] documented as of this encounter Advance Directives Name Relationship Healthcare Agent Communication Relationship Zoya "Ailyn" Abran [facility] Care Agent [email or web address] et Grzegorz Garcia [facility] Agent (Mobile) [email or web address]
--- OUTSIDE RECORDS SUMMARY | 2020-09-26 06:31 | XMS REPORT | Summary of Care ---
:1935 Author Organization [facility] Address [address] [place] [address] Care Team Providers Name Role Phone Brian Martin MD Primary Care Provider Reason for Referral MRI/CAT Scan (STAT) Status Reason Specialty Diagnoses / Referred By Referred To Procedures Contact Contact New Request Diagnostic Diagnoses Confusion Acute nonintractable headache, unspecified headache type Anna, K Radiology Procedures CT HEAD WO CONTRAST Blanca, PAC [address] [place] [address] Radiology Services (JOSIAH) Status Reason Specialty Diagnoses / Referred By Referred To Procedures Contact Contact New Request Diagnostic Diagnoses Confusion Acute nonintractable headache, unspecified headache type Anna, K Radiology Procedures XR CHEST 1 VW Blanca, PAC [address] [facility] [address] [place] [address] Reason for Visit Reason Comments Headache Auth/Cert Status Reason Specialty Diagnoses / Referred By Referred To Procedures Contact Contact Emergency Medicine Adc Em ergency Dept [address] [place] [address] Fax: Encounter Details Date Type Department Care Team Description 07/17/2020 Emergency ADC-Emergency Anna, K Blanca, Confusion (Primary Dx); Department PAC Acute nonintractable headache, unspecifi ed headache type; [address] [place] [address] Hypertension, unspecified type [address] [place] [address] [place] [phone] [address] Allergies Active Allergy Reactions Severity Noted Date Comments Amlodipine Other - See comments High 07/19/2017 Severe muscle pain Levofloxacin Nausea and/or High 08/05/2017 Vomiting Lisinopril Swelling 05/03/2017 Penicillins Other - See comments 10/08/2014 When re sofia IM Says feels like ic ewater in runni ng all over and fe els like passing ou t Does not recall getting any oth er way. Sdlrjmn-Nco-Sdf Unknown - See 03/03/2018 Muscle pain Reductase [...] sent through Care Everywhere.High Blood Pressure, Controlling (Argentine)documented in this encounter ED Notes Dulce Dixon RN - 07/17/2020 10:29 AM CDTPt c/o headache that started this morning when she woke up. Denies weakness/dizziness. No acute neuro symptoms noted. Bilateral cash management officer strong and equal. Denies CP/blurred vision. documented [...] she is on her way back to picker/puller the patient. documented in this encounter Plan of Treatment Date Type Specialty Care Team Description 07/18/2020 Ancillary Visit Physical Therapy Kaye Martin MD [address] [place] [address] [place] [address] Katherine Dodd, [address] [address] 08/12/2020 Office Visit Internal Medicine Patti Martin MD [address] [address] 15 [phone] Name Type Priority Associated Diagnoses Date/Ti me [...] of this encounter Implants Implanted Type Area Continuous Mining Machine Operator Device Shelf Model / Identifier Expiration Serial / Lot Date Bipolar Head, Hu Uhr Bipolar [id number] #Uh1-48-28 [Uh1-48-28] BIPOLAR Left: Hu 02/02/2022 UH1-48-28 / Implanted: Qty: 1 on 11/29/2017 by Reid Tim MD at [facility] head Hip 0 / [id number] Head, Hu V40 Cocr Lfit 28mm/0 #[id number] Femoral Left: Hu 07/20/2022 [id number] / Implanted: Qty: 1 on 11/29/2017 by Reid Tim MD at [facility] Head Hip 0 / [id number] Stem, Hu Size 7 Accolade Ii 127deg #[id number] Femoral Left: [place] 08/10/2022 [id number] / Implanted: Qty: 1 on 11/29/2017 by Reid Tim MD at [facility] Stem Hip 0 / [id number] documented as of this encounter Procedures Procedure [...] 07/17/2020 10:56 Confusion Results for this PANEL (76639) AM CDT Acute nonintractable proced ure are [...] CDT) Pathologist Sig nature APPEARANCE Clear Clear [facility] COLOR Straw (A) Yellow [facility] PH 8.0 4.8 - 8.0 [facility] SP GRAVITY 1.003 1.003 - 1.030 [facility] GLU U QUAL Normal Normal [facility] BLOOD 1+ (A) Negative [facility] KETONES Negative Negative [facility] PROTEIN Negative Negative [facility] UROBILIN Normal Normal [facility] BILIRUBIN Negative Negative [facility] NITRITE Negative Negative [facility] LEUK CINDY Negative Negative [facility] RBC/HPF 2 0 - 3 HPF [facility] WBC/HPF 6 (H) 0 - 5 HPF [facility] BACTERIA Few (A) Negative [facility] AMORPHOUS Rare Rare HPF [facility] SQ EPITH 4 HPF [facility] Specimen Urine - URINE, CATHETERIZED Performing Organization Address City/State/Zipcode Phone Number [facility] CLIA: [id number] [place] [address] XR CHEST 1 [...] heart. CONCLUSIONS: No radiographic signs of ac jena cardiopulmonary disease. Procedure Note [facility], Radiant Results [...] heart. CONCLUSIONS: No radiographic signs of ac jena cardiopulmonary disease. Performing Organization Address City/State/Zipcode Phone [...] Pathologist Sig nature LACTIC ACID 1.34 mmol/L [facility] Specimen Blood - VENOUS Performing Organization Address City/State/Zipcode Phone Number [facility] CLIA: [id number] [place] [address] COVID-19 ([facility] RAPID TESTING) (07/17/2020 10:57 AM CDT) SARS-CoV-2 Rapid ID Not Detected Not Detected [facility] Specimen Swab - NASOPHARYNGEAL SWAB Narrative Performed At [facility] NOW COVID-19 Assay is an isothermal nucleic [facility] acid amplification test intended for the qualitative detection of nucleic acid from SARS-CoV-2 viral RNA in nasopharyngeal (COOK ICE CREAM) specimens. It is used under Emergency Use [...] testing if clinically indicated. Performing Organization Address [facility] Phone Number [facility] CLIA: [id number] [place] [address] [place] [address] Drive TROPONIN I (07/17/2020 10:56 AM CDT) Pathologist Sig [employer] TROPONIN I 0.017 <=0.034 ng/mL [facility] Specimen Blood - VENOUS Narrative Performed At Equal or Less than 0.034 ng/ml---Normal [facility] Note: Cardiac troponin begins to [...] patient's use of biotin. Performing Organization Address [facility] Phone Number [facility] CLIA: [id number] [place] [address] MAGNESIUM (07/17/2020 10:56 AM CDT) Pathologist [facility] [employer] MAGNESIUM 2.0 1.7 - 2.4 mg/dL [facility] Specimen Blood - VENOUS Performing Organization Address [facility] Phone Number [facility] CLIA: [id number] [place] [address] COMP. METABOLIC PANEL (49632) (07/17/2020 10:56 AM CDT) [facility] NA 136 135 - 145 [facility] mmol/L [facility] K 4.1 3.5 - 5.0 [facility] mmol/L [facility] CL 100 98 - 108 mmol/L [facility] CO2 TOTAL 29 23 - 31 mmol/L [facility] AGAP 7 2 - 16 [facility] BUN 14 7 - 23 mg/dL [facility] GLUCOSE 124 (H) 70 - 110 mg/dL [facility] CREATININE 0.89 0.50 - 1.04 [facility] mg/dL [facility] TOTAL BILI 0.5 0.1 - 1.1 mg/dL [facility] CALCIUM 9.5 8.6 - 10.6 [facility] mg/dL [facility] T PROTEIN 7.2 6.3 - 8.2 g/dL [facility] ALBUMIN 3.9 3.5 - 5.0 g/dL [facility] ALK PHOS 77 34 - 122 U/L [facility] ALTv 11 5 - 35 U/L [facility] AST(SGOT) 34 13 - 40 U/L [facility] eGFR Calculation 60.7 mL/min/1.73m2 [facility] ([facility] [place]) eGFR Calculation 73.6 mL/min/1.73m2 [facility] ([facility]) [facility] Specimen Blood - VENOUS Narrative Performed At Association of Glomerular Filtration Rate (GFR) [facility] and Staging of Kidney Disease* [...] tests). Performing Organization Address City/State/Zipcode Phone Number [facility] CLIA: [id number] [place] [address] CBC WITH DIFF (07/17/2020 10:56 AM CDT) [facility] WBC 7.77 4.30 - 11.10 [facility] 10*3/L [facility] RBC 4.53 3.93 - 5.25 [facility] 10*6/L [facility] HGB 12.6 11.6 - 15.0 [facility] g/dL [facility] HCT 38.3 35.7 - 45.2 % [facility] MCV 84.5 80.6 - 95.5 fL [facility] MCH 27.8 25.9 - 32.8 pg [facility] MCHC 32.9 31.6 - 35.1 [facility] g/dL [facility] RDW-SD 38.0 (L) 39.0 - 49.9 fL [facility] RDW-CV 12.4 12.0 - 15.5 % [facility] PLT 230 166 - 358 [facility] 10*3/L [facility] MPV 9.9 9.5 - 12.9 fL [facility] NRBC/100 WBC 0.0 0.0 - 10.0 /100 [facility] WBCs [facility] NRBC x10^3 <0.01 10*3/L [facility] GRAN MAT (NEUT) % 80.1 % [facility] IMM GRAN % 0.30 % [facility] LYMPH % 14.4 % [facility] MONO % 3.7 % [facility] EOS % 0.6 % [facility] BASO % 0.9 % [facility] GRAN MAT x10^3(ANC) 6.22 1.88 - 7.09 [facility] 10*3/uL HOSPITAL LAB[facility]ATORY IMM GRAN x10^3 <0.03 0.00 - 0.06 [facility] 10*3/uL HOSPITAL [facility] LYMPH x10^3 1.12 (L) 1.32 - 3.29 [facility] 10*3/uL [facility] MONO x10^3 0.29 (L) 0.33 - 0.92 [facility] 10*3/uL [facility] EOS x10^3 0.05 0.03 - 0.39 [facility] 10*3/uL [facility] BASO x10^3 0.07 0.01 - 0.07 [address] [address]*3/uL [facility] Specimen Blood - VENOUS Performing Organization Address City/State/Zipcode Phone Number [facility] CLIA: [id number] [place] [address] documented in this [...] Addre ss Type Group MEDICARE MEDICARE PART [id number] 2002-Presap [phone] Medicare A & B t 2 [id number] [place] [address] [facility] MEDICAID OF [id number] 2012-Candida [phone] [address] Medicaid [place] 0 [id number] [place] [address] documented as of this encounter Advance Directives Name Relationship Healthcare Agent Communication Relationship Zoya "Ailyn" Abran [facility] Health Care Agent [email or web address] H[address] [place] [address] [phone] Agent (Mobile) [email or web address]
--- OUTSIDE RECORDS SUMMARY | 2020-09-26 06:31 | XMS REPORT | Summary of Care ---
:1935 Author Organization [facility] Address [address] [id number] Care Team Providers Name Role Phone Brian Martin MD Primary Care Provider Reason for Visit Reason Comments Follow-up (Routine) Status Reason Specialty Diagnoses / Referred By Referred To Procedures Contact Contact Authorized Physical Therapy Diagnoses Neck pain, chronic Upper back pain, chronic Martin, Procedures CONSULT/REFERRAL PHYSICAL THERAPY [place] PHYSICAL THERAPY [...] GA SELF-CARE/HOME MGMT TRAINING EACH [address] [place] [address] Dr Man[address] [place] [address] Encounter Details Date Type Department Care Team Description 07/16/[address] [facility] Farideh Martin MD [address] [place] [address] Dr Manley [address] [place] [address] Chronic neck pain (Primary Dx); Physical Therapy- Katherine Dodd, CEMENT BREAKER [address] [place] [address] Chronic upper back pain; [place] Limited joint range of motio n; Professional Office Muscle w eakness (generalized); Building Impaired functional mobility and activity tolerance [address] [place] [address] Dr. Elise [address] [place] [phone] Allergies Active Allergy Reactions Severity Noted Date Comments Amlodipine Other - See comments High 07/19/2017 Severe muscle pain Levofloxacin Nausea and/or High 08/05/2017 Vomiting Lisinopril Swelling 05/03/2017 Penicillins Other - See comments 10/08/2014 When re cirao IM Says feels like ic ewater in runni ng all over and fe els like passing ou t Does not recall getting any oth er way. Ylyfxpy-Zup-Nts Unknown - See 03/03/2018 Muscle pain Reductase [...] in this encounter Progress Notes Katherine Dodd, CEMENT BREAKER - 07/16/2020 2:20 PM CDT Physical Therapy [...] add/advance exercises as able. Katherine Dodd PTA [place] Lic#[id number] Supervised by: Lidya Pickard PT [facility] Dept. [phone] (phone) documented in this encounter Plan of Treatment Date Type Specialty Care Team Description 07/18/2020 Ancillary Visit Physical Therapy Kaye Martin MD [address] [place] [address] [phone] Katherine Dodd CEMENT BREAKER [address] [place] [address] 08/12/2020 Office Visit Internal Medicine Patti Martin MD [address] [place] [address]75 15 Health Maintenance Due Date Last [...] of this encounter Implants Implanted Type Area Craft Center Director Device Shelf Model / Identifier Expiration Serial / Lot Date Bipolar Head, Hu Uhr Bipolar [id number] #Uh1-48-28 [Uh1-48-28] BIPOLAR Left: Hu 02/02/2022 UH1-48-28 / Implanted: Qty: 1 on 11/29/2017 by Reid Tim MD at [facility] head Hip 0 / [id number] Head, Hu V40 Cocr Lfit 28mm/0 #6260-9-128 Femoral Left: Hu 07/20/2022 6260-9-128 / Implanted: Qty: 1 on 11/29/2017 by Reid Tim MD at [facility] Head Hip 0 / [id number] Stem, Hu Size 7 Accolade Ii 127deg #[id number] Femoral Left: [place] 08/10/2022 [id number] / Implanted: Qty: 1 on 11/29/2017 by Reid Tim MD at [facility] Stem Hip 0 / [id number] documented as of this encounter Results Not [...] Addre ss Type Group MEDICARE MEDICARE PART [id number] 2002-Candida [phone] [address] Medicare A & B t 2 [id number] [place] [address] [facility] MEDICAID OF [id number] 2012-Candida [phone] [address] Medicaid [place] t 0 [id number] [place] [address] documented as of this encounter Advance Directives Name Relationship Healthcare Agent Communication Relationship Zoya Osullivan (Susie) [facility] Care Agent [email or web address] Ty [address] [place] [address] [phone] Agent (Mobile) [email or web address]
--- OUTSIDE RECORDS SUMMARY | 2020-09-26 06:32 | XMS REPORT | Summary of Care ---
:1935 Author Organization [facility] Address [address] [place], [place] [id number] Care Team Providers Name Role Phone Brian Martin MD Primary Care Provider Reason for Visit Reason Comments New Evaluation confusion Encounter Details Date Type Department Care Team Description 07/23/2020 Office Visit [facility] Rosendo Richardson TIA (transie nt ischemic attack) (Primary Dx); Neurology-Elpidio Jarrett MD Cerebrovascular disease; [address] PFO (paten t foramen ovale) Drive, [address] [facility] [place] [phone] Allergies Active Allergy Reactions Severity Noted Date Comments Amlodipine Other - See comments High 07/19/2017 Severe muscle pain Levofloxacin Nausea and/or High 08/05/2017 Vomiting Lisinopril Swelling 05/03/2017 Penicillins Other - See comments 10/08/2014 When re cieives IM Says feels like ic ewater in runni ng all over and fe els like passing ou t Does not recall getting any oth er way. Dzdjcfw-Jtn-Myq Unknown - See 03/03/2018 Muscle pain Reductase [...] PFO, and she has seen our local compliance tester in reference to that issue. She has [...] file Gets together: Not on file Attends moravian service: Not on file Active member of [...] from a Microsoft Word template created with [employer]. The text was dictated into the template via Dragon Naturally Speaking. documented in this encounter Plan of Treatment Date Type Specialty Care Team Description 08/19/2020 Office Visit Internal Medicine Patti Martin MD [address] [address] 15 Health Maintenance Due Date Last Done [...] of this encounter Implants Implanted Type Area Airway Traffic Controller Device Shelf Model / Identifier Expiration Serial / Lot Date Bipolar Head, Moore Uhr Bipolar [id number] #Uh1-48-28 [Uh1-48-28] BIPOLAR Left: [place] 02/02/2022 UH1-48-28 / Implanted: Qty: 1 on 11/29/2017 by Reid Tim MD at [facility] head Hip 0 / [id number] Head, [place] V40 Cocr Lfit 28mm/0 #6260-9-128 Femoral Left: Hu 07/20/2022 6260-9-128 / Implanted: Qty: 1 on 11/29/2017 by Reid Tim MD at [facility] Head Hip 0 / [id number] Stem, Hu Size 7 Accolade Ii 127deg #[id number] Femoral Left: Hu 08/10/2022 [id number] / Implanted: Qty: 1 on 11/29/2017 by Reid Tim MD at 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 Medicare A & B t 2 [id number] [place] [id number] [facility] MEDICAID OF [id number] 2012-Presen [id number] [address] Medicaid [place] t 0 [id number] [place] [address] documented as of this encounter Advance Directives Name Relationship Healthcare Agent Communication Relationship Zoya "Ailyn" Abran [facility] Health Care Agent [email or web address] Ty Haines [place] [address] [phone] Agent (Mobile) [email or web address]
[2020-09-26] MEDS ORDERED: Ringers Lactate 1,000 ML IV ONE (07:02)
[2020-09-26] MEDS: MOXIFLOXACIN HCL 0.5% 3ML OPTH OPTH ONE ×3 (07:03→07:30)
[2020-09-26] MEDS: KETOROLAC OPTHALMIC 5 ML BOT ONE ×3 (07:03→07:30)
[2020-09-26] MEDS ORDERED: propofoL 200 MG/20 ML VIAL IV ONE (07:26)
[2020-09-26] MEDS ORDERED: FENTANYL CITR 100 MCG/2 ML ONE (07:26)
[2020-09-26] MEDS ORDERED: LIDOCAINE 2% MPF 5 ML VIAL ONE (07:26)
[2020-09-26] MEDS ORDERED: TOBRADEX 0.3-0.1% OPTH OINTMENT ONE (07:28)
[2020-09-26] MEDS ORDERED: BSS OPTHALMIC SOL 15 ML BOT OPTH ONE (07:28)
[2020-09-26] MEDS ORDERED: POVIDONE-IODINE 5% EYE DROPS ONE (07:28)
[2020-09-26] MEDS ORDERED: ONDANSETRON 4 MG/2 ML VIAL ONE (07:31)
[2020-09-26] MEDS ORDERED: LIDOCAINE 1% W/EPI 1:100,000 MDV 20 ML VIAL ONE (08:16)
[2020-09-26] MEDS ORDERED: GLYCOPYRROLATE 0.2 MG/ML SYR ONE (09:16)
[2020-09-26] MEDS ORDERED: EPHEDRINE SULF 50 MG/ML VIAL ONE (09:21)
[2020-09-26] MEDS ORDERED: KETOROLAC 30 MG/ML INJ ONE (10:04)
[2020-09-26 10:52] VITALS: O2SAT 98
[2020-09-26 13:31] VITALS: BP 144/68; TEMP 96.2
--- NOTE | 2020-09-30 11:41 | OP ---
Date of Procedure: 09/26/2020 Surgeon: Derek Leon MD Racebook Writer: None. Preoperative Diagnosis: Glaucoma, right eye. Postoperative Diagnosis: Glaucoma, right eye. Procedure Performed: Trabeculectomy with placement of Ex-Press shunt, right eye. Description Of Procedure: After being properly identified in the preoperative holding area, the patient was taken back to the operating room where a time-out was performed. The patient was then prepped and draped in the normal sterile fashion. Examination underneath the operating microscope revealed an extremely deep set orbit as well as a markedly displaced slightly irregular pupil superiorly with the intra-ocular lens displaying superior optic capture and PCL. Because of the orbit and the small fornices, decision to place a bridle suture was made and the bridle suture was placed at 6 o'clock using a 5-0 silk. Of note, the patient required a similar bridle suture on the fellow eye and it was noted that the patient's tissues were extremely friable and I was aware of this possibility throughout the procedure. Once the bridle suture was in place and the eye rotated inferiorly, we still had poor exposure superiorly, and therefore, the decision to place the shunt was made in the superior temporal position because of the patient's severe glaucoma and high-risk snuff-out both during the surgery and for any future surgeries. I did not feel the need to preserve the conjunctiva for placement of an Ahmed valve/other tube as this was unlikely to ever be performed. Lidocaine with epinephrine was then injected subconjunctivally in order to create a bleb and the conjunctiva dissected back using Rhina scissors. Light cautery was performed in order to achieve hemostasis and the crescent blade was used to clean the episclera. Using a caliper set to 3.5 mm, a 3.5 sq mm was marked out, and then using a super sharp scalpel, the initial outlined and the incisions were made. The scleral flap was further dissected and finished using the crescent blade going slightly less thick than my normal thickness because of the tissue to provide a thicker base in order to reduce the chance of the shunt migrating or eroding through. Once the dissection was performed and the surgical limbus was visualized, a 27-gauge needle was used to pass parallel to the iris into the anterior chamber, which resulted in a small trickle of fluid. The Ex-Press model P50 was then opened and placed through the incision tract that we had made with the needle. The expression was then released, and using a Weck-Alondra, a very small trickle of fluid was noted. The device was gently wiggled back and forth in order to create a slightly larger opening on the side in order to hopefully achieve a little bit better outflow, but still being cautious so as not weaken the tissues resulting in any movement or migration of the shunt. Then, the anterior chamber was irrigated using intra-ocular BSS on a 30-gauge cannula and fluid was seen exiting through the shunt. The scleral flap was closed using 10-0 nylon sutures x2 and then the conjunctiva closed using 9-0 Vicryl. Once the conjunctiva had been closed, the anterior chamber was again irrigated with interocular BSS and seemed to rise though minimally with irrigation. The procedure was therefore concluded and the bridle suture removed. The patient was patched over TobraDex ointment and taken to the postoperative holding area in stable condition having tolerated the procedure well. Complications: There were no complications. Estimated Blood Loss: Less than 1 mL. Plan: The patient is to follow up with myself, Dr. Derek Leon, the [facility] [place], tomorrow morning. There were no specimens sent or drains placed. Implant is as above. Specifically expressed glaucoma filtration device version P-50, serial #[id number]. Dictated but not Reviewed MARGARET/MODL Voice ID: [id number] Report ID: [id number] MTDD
== END 2020-09-26 11:30 | disposition home or self-care (01) ==
LOC: OR 06:27
PROVIDERS: ATTEND Ophthalmology
PROC: 08123J4 Bypass Right Anterior Chamber to Sclera with Synthetic Substitute, Percutaneous Approach (ICD-10-PCS; principal; 2020-09-26 07:30)
DX: H40.9 Unspecified glaucoma (principal); Z20.828 Contact with and (suspected) exposure to other viral communicable diseases; I10 Essential (primary) hypertension; E07.9 Disorder of thyroid, unspecified
CPT/HCPCS: 66170; 66183; U0002; J2704; J3010; J7120; J2405